=== PATIENT | male | born 1945 | race African-American/Black ===

== ENCOUNTER 2024-07-02 10:29 | Inpatient (IN) | payer OTHER, SELFPAY ==
[2024-07-02] VITALS (18 sets, daily range): BP systolic 86–130; BP diastolic 45–84; PULSE 78–98; RESP 12–21; TEMP 36.6–37.2; O2SAT 88–99; BMI 27.2
--- NOTE | ~2024-07-02 | XR_ITS ---
CLINICAL HISTORY: re-eval lung collapse 1 view chest x-ray Comparison: 07/02/2024 Findings: Stable position of left inferior hemithoracic chest tube. No significant change in complete left hemithoracic opacification (due to pleural effusion and lung collapse) with associated left-sided mediastinal shift. New small right lateral costophrenic pleural effusion can not be excluded. Old posttraumatic changes at level of right distal clavicle IMPRESSION: 1. Stable position of left inferior hemithoracic chest tube. No significant change in complete left hemithoracic opacification (due to pleural effusion and lung collapse) with associated left-sided mediastinal shift. 2. New small right lateral costophrenic pleural effusion can not be excluded. This document has been electronically signed by: Lashaun Rice MD on 07/04/2024 11:44:09
--- NOTE | ~2024-07-02 | US_ITS ---
EXAMINATION: US ABDOMEN LIMITED CLINICAL INFORMATION: Liver masses. COMPARISON: CT abdomen and pelvis 07/02/2024. TECHNIQUE: Real-time imaging of the liver. FINDINGS: Multiple images of the liver in transverse and long view and grayscale performed demonstrating lesions in concordance with previous cross-sectional imaging. The lesion of interest seen on CT scan at the inferior aspect of the right hepatic lobe and partially exophytic was not well-visualized and therefore it was deemed that the biopsy should be performed under CT to be performed at a later time. US/US abdomen limited IMPRESSION: Limited ultrasound of the liver demonstrating known lesions Electronically signed by: Raad Gonsalez MD 07/06/2024 04:38 PM EDT
--- NOTE | ~2024-07-02 | CT_ITS ---
CLINICAL HISTORY: abdominal pain, weight loss CT abdomen and pelvis with contrast Comparison: None Findings: There are multiple hypodense lesions of the liver, i.e., 1.6 x 2 cm in the right liver lobe series 8, image 16. No intrahepatic or extrahepatic ductal dilatation is seen. The hepatic and portal veins are patent. No calcified gallstones in the gallbladder. Pancreas, spleen are normal in appearance. 1.8 x 1.8 cm left adrenal nodule axial image 21. No suspicious focal lesion of the kidneys. There are bilateral renal cysts. No hydronephrosis or calculi. The abdominal aorta demonstrates no evidence of aneurysmal dilatation or dissection. Atherosclerosis calcification of the aorta. The colon is without wall thickening or inflammatory change. Colonic diverticulosis. No evidence of bowel obstruction. Appendix is not visualized. The pelvic organs are within normal limits. No intraperitoneal free air or fluid is visualized. Degenerative changes of the lumbar spine. IMPRESSION: Multiple hypodense lesions of the liver and a soft tissue nodule of the left adrenal gland are concerning for metastasis. Additional findings as above. This document has been electronically signed by: Laine Noe MD on 07/02/2024 14:02:57
--- NOTE | ~2024-07-02 | FL_ITS ---
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 79-year-old male. COMPARISON: None. Correlation made with CT chest 06/03/2024. TECHNIQUE: Fluoroscopic air contrast upper GI examination was performed utilizing standard techniques with thin and thick barium and effervescent granules. Numerous spot images were obtained. Several fluoroscopic image hold cine sequences were also obtained. FINDINGS: UPPER GI SERIES: Study is significantly limited due to patient unable to tolerate more than one swallow due to pain/dysphagia. Limited imaging demonstrates approximately 9 round filling defects retained within the mid esophagus, just below the level of the aortic arch, most likely retained food bolus. Just inferior to the food bolus, there is a filling defect of the more distal esophagus, possibly representing an intrinsic or extrinsic stricture. Further characterization was not possible due to limitations of the exam. A small amount of barium did pass beyond the retained food bolus and probable extrinsic stricture into the stomach. Due to the risk of aspiration, examination was terminated at this time. Complete whiteout of the left hemithorax is noted. A pigtail pleural catheter is in place in the medial left lower thorax. FLUOROSCOPY TIME: 44 seconds Number of Spot Images:2 Number of cines obtained: None. DOSE AREA PRODUCT: 710.6 uGy-m2 (microgray-meter squared) FL/FL barium swallow IMPRESSION: 1. Retained foreign body/food bolus in the midesophagus just below the level of the aortic arch. 2. Suspect either intrinsic or extrinsic stricture just below the retained food bolus. 3. A small amount of contrast did progress distally into the stomach. This critical result was relayed to Dr. Stauffer at 10:30 AM, 07/05/2024, via secure text. It was ascertained that the content and urgency of the report was understood at the time of direct communication. Electronically signed by: Vaughn Barth MD 07/05/2024 11:57 AM EDT
--- NOTE | ~2024-07-02 | XR_ITS ---
CLINICAL HISTORY: evaluate pigtail placement 1 view chest x-ray Comparison: CT/SR - CT CHEST W IV CON - 07/02/24 11:54 EDT Findings: Complete opacification of the left lung. A chest tube is overlying the left lung base. Normal size heart. No acute fracture. IMPRESSION: Left-sided chest tube placement. This document has been electronically signed by: Laine Noe MD on 07/02/2024 17:41:28
--- NOTE | ~2024-07-02 | CT_ITS ---
CLINICAL HISTORY: headache, weight loss CT head with contrast Comparison: None Findings: No intra-axial mass, midline shift, hydrocephalus, or acute hemorrhage. There is atrophy-like change and white matter disease. 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 The visualized paranasal sinuses and mastoid air cells are normal. The orbits are unremarkable. No skull fracture. IMPRESSION: 1. No acute intracranial findings. This document has been electronically signed by: Laine Noe MD on 07/02/2024 13:55:30
--- NOTE | ~2024-07-02 | CT_ITS ---
CLINICAL HISTORY: pain, weight loss CT chest with contrast Comparison: None Findings: The heart size is normal. No aortic dissection or pulmonary embolism. Possible large left central hilar mass measuring roughly 3.5 x 6.3 cm in size. There are enlarged supraclavicular and mediastinal lymph nodes, i.e., subcarinal lymph node 8 x 7 cm in size. There is complete collapse of the left lung. The right lung is clear. Large left pleural effusion. There are soft tissue mass within the left pleural cavity. Degenerative changes of the spine. IMPRESSION: A large left central hilar mass is concerning for neoplasm. Enlarged supraclavicular and mediastinal lymph nodes are concerning for angy metastases. Complete collapse of the left lung. 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 This document has been electronically signed by: Laine Noe MD on 07/02/2024 14:13:50
--- NOTE | 2024-07-02 11:02 | ED_ITS ---
HPI - General Adult General Chief complaint: General Medical Stated complaint: abd pain mass rectal bleeding Time Seen by Provider: 07/02/24 11:02 Source: patient and family Mode of arrival: ambulatory Limitations: language barrier History of Present Illness ED Provider: Quintin Sethi DO HPI narrative: 79-year-old male with past medical history of stroke 6 years ago on Brilinta and aspirin, hyperlipidemia and previous long history of tobacco use many years ago presents to the ED with family member due to concern for 50 lb weight loss over the past month. The patient was previously living in [place] and had a workup there showing concerning findings for lung mass, kidney mass and esophageal mass. The workup was completed a couple of weeks ago. The patient has had some difficulty swallowing and has not had solid foods in the last couple of weeks. He has been consuming chicken broth, ensure and water for nutrition. No recent vomiting or diarrhea. No recent bleeding. He reports constant pain over his left flank. He reports an occasional headache. Daughter denies any confusion. Patient has had no fevers or night sweats. Review of CT images performed in [place] show renal cysts, diverticulosis, evidence of diverticulitis, a nodular prostate, nodes in the paratracheal region, stranding posteriorly along the distal esophagus and mainstem bronchus encasing hilar structures, as well as punctate pulmonary nodules in the right upper lobe and mild emphysema. Patient was moved from [place] to the [facility] with his daughter and has not yet seen a doctor for follow up. He has been taking his prescribed medications. History obtained with the assistance of in-person housing coordinator, Olivia. Related Data Home Medications ?Medication ?Instructions ?Recorded ?Confirmed albuterol sulfate 90 mcg/actuation 2 puff inhalation Q4H PRN 07/02/24 07/02/24 aerosol inhaler Respiratory Distress ascorbic acid (vitamin C) 500 mg 500 mg PO BID 07/02/24 07/02/24 tablet (Vitamin C) aspirin 325 mg tablet 325 mg PO BID 07/02/24 07/02/24 atorvastatin 40 mg tablet 40 mg PO DAILY 07/02/24 07/02/24 calcium 600 mg (as carbonate)-vit 1 tab PO BID 07/02/24 07/02/24 D3 20 mcg (800 unit) chewable tablet (Caltrate plus D) cholecalciferol (vitamin D3) 125 125 mcg PO BID 07/02/24 07/02/24 mcg (5,000 unit) tablet (Vitamin D3) famotidine 20 mg tablet 20 mg PO BEDTIME PRN Dyspepsia 07/02/24 07/02/24 ferrous sulfate 325 mg (65 mg 325 mg PO DAILY 07/02/24 07/02/24 iron) tablet (Iron (ferrous sulfate)) isosorbide mononitrate 30 mg 30 mg PO DAILY 07/02/24 07/02/24 tablet,extended release 24 hr ticagrelor 90 mg tablet (Brilinta) 90 mg PO BID 07/02/24 07/02/24 tramadol 50 mg tablet 50 mg PO Q6H PRN Pain (Scale Score 07/02/24 07/02/24 4-6) Allergies Allergy/AdvReac Type Severity Reaction Status Date / Time No Known Allergies Allergy Verified 07/02/24 10:51 Review of Systems 2 Review of Systems: Yes all other systems are reviewed and are negative PMFSH Social History Social History Unable to assess alcohol history related to: Unknown Patient Tobacco Use Status: Former Tobacco user Smoked in Last 30 Days: No Use of substances other than those prescribed or required for medical reasons: No Advance Directives: No Advance Directives Information Provided: Yes Do you have a plan to hurt others: No Plan Nutrition Risks: Emaciation/Cachexia and Poor intake 0-25% >4 days Physical Exam ED Vital Signs: Vital Signs - 24 hr 07/02/24 10:39 07/02/24 12:00 07/02/24 12:40 Temperature 97.9 F 98.9 F 98.0 F Pulse Rate 84 82 86 Respiratory Rate 18 18 21 H Blood Pressure 100/57 L 96/51 L 96/45 L Pulse Oximetry 95 94 88 L Oxygen Delivery Method Room Air Room Air Room Air 07/02/24 12:57 07/02/24 13:15 07/02/24 13:46 Temperature 98.9 F 98.0 F Pulse Rate 82 83 Respiratory Rate 18 16 Blood Pressure 89/52 L 106/53 L 104/62 Pulse Oximetry 96 99 Oxygen Delivery Method Room Air Room Air 07/02/24 14:44 07/02/24 14:45 07/02/24 14:46 Temperature Pulse Rate 85 89 Respiratory Rate Blood Pressure 116/59 L 118/59 L Pulse Oximetry 88 L Oxygen Delivery Method Room Air 07/02/24 14:49 Temperature Pulse Rate 89 Respiratory Rate Blood Pressure 110/62 Pulse Oximetry Oxygen Delivery Method BMI result Body Mass Index 27.2 Constitutional: ?Alert, oriented, speaking in full sentences, appears weak and cachectic HEENT: ?Normocephalic, atraumatic. ?Dry mucous membranes Eyes: ?PERRL, EOMI Neck: ?Supple, nontender Chest: ?No chest wall tenderness Respiratory: ?Diminished lung sounds throughout the left side, no increased work of breathing Cardio: ?Regular rate and rhythm, no murmur, 2+ radial and DP pulses symmetrically GI: ?Soft, nondistended, pain limited to the left flank on palpation Back: ?Normal range of motion, nontender Skin: ?No rash, no lesions Neuro: ?Alert and oriented to person, place and time, moves all 4 extremities, no focal deficits Extremities: ?No swelling or tenderness, full range of motion Psych: ?Calm, alert and cooperative, appropriate behavior Medications Administered Discontinued Medications Generic Name Dose Route Start Last Admin Trade Name Freq PRN Reason Stop Dose Admin Sodium Chloride 1,000 mls @ 999 mls/hr 07/02/24 12:00 07/02/24 13:09 Ns IV 07/02/24 13:00 Infused .Q1H1M DIANA Infusion Sodium Chloride 1,000 mls @ 999 mls/hr 07/02/24 13:15 07/02/24 14:17 Ns IV 07/02/24 14:15 Infused .Q1H1M DIANA Infusion Iohexol 85 ml 07/02/24 12:15 07/02/24 12:16 Iohexol 350 Mg/Ml 100 Ml Infus..Btl IV 07/02/24 12:16 85 ml ONCE ONE Administration Lidocaine HCl 20 ml 07/02/24 15:31 07/02/24 16:15 Lidocaine Hcl 1 % Mpf 5 Ml Vial SUBCUT 07/02/24 15:32 20 ml ONCE ONE Administration Morphine Sulfate 4 mg 07/02/24 11:46 07/02/24 13:09 Morphine Sulfate 4 Mg/Ml Cartridge IVPUSH 07/02/24 11:47 4 mg ONCE ONE Administration Protocol Morphine Sulfate 4 mg 07/02/24 16:37 07/02/24 17:57 Morphine Sulfate 4 Mg/Ml Cartridge IVPUSH 07/02/24 16:38 Not Given ONCE ONE Protocol Ondansetron HCl 4 mg 07/02/24 11:46 07/02/24 12:20 Ondansetron Hcl 4 Mg/2 Ml Vial IVPUSH 07/02/24 11:47 4 mg ONCE ONE Administration Procedures Chest Tube Chest Tube 1: Chest Tube Location: left Size of Tube (cm): 14 Chest Tube Prep: Yes betadine prep (Chlorhexidine), sterile drapes applied and other Local Anesthetic: lidocaine 1% Amount of anesthesia used (mL): 20 Incision Made With: other (Seldinger technique using pigtail) Post Procedure: sutured to skin and sterile dressing applied Tube Drainage: fluid (Serosanguineous fluid, cloudy) Amount of initial drainage (mL): 1,000 Post Procedure CXR?: Yes Patient Tolerated Procedure: Yes Complications: other (Clamped drain) Progress: The chest tube was inserted using ultrasound images prior to prepping the skin and applying the drape as well as with sterile technique just prior to insertion of the pigtail catheter. A large area of Frank effusion was visualized along the left posterolateral chest wall and the tube was inserted via Seldinger technique over midthoracic rib without notable air and with fluid appreciated immediately. Medical Decision Making Medical Decision Making MDM Narrative: Ill-appearing patient presenting with significant weight loss and concerns for metastatic disease from workup performed in [place] within the last couple of weeks. Patient has transient hypotension which responded well to 2 L of IV fluids. His pain has been addressed with multiple rounds of morphine. He became hypoxic to 88% on room air prior to initial morphine administration and was placed on 2 L nasal cannula. He also became tachypneic from 20 breaths per minute to 35 breaths per minute upon standing and was unable to ambulate. His labs are grossly unremarkable. CT imaging shows concerning findings for metastatic disease involving the abdomen and chest. CT of the brain unremarkable. The patient has a large left-sided pleural effusion. In discussion with pulmonology and hospitalist team, it was decided to perform a diagnostic and therapeutic left-sided thoracentesis. The patient tolerated this well and consent was obtained with the assistance of in-person housing coordinator, Pauline. Plan is for interventional Radiology to place a PleurX drain and the patient will be followed with Oncology as well. Admission/Observation Consideration of admission/observation: Escalation of care including admission/observation considered Consult Healthcare Provider Management of the patient was discussed with: Hospitalist and Camp Program Director (Pulmonology) Lab Data MDM Lab Attestation statement: I reviewed the patient's lab results. 07/02/24 11:11 07/02/24 11:11 Labs: Lab Results 07/02/24 07/02/24 07/02/24 Range/Units 11:11 11:14 14:38 WBC 12.4 H (4.8-10.8) X10*3/uL RBC 3.34 L (4.60-5.80) X10*6/uL Hgb 10.9 L (14.0-18.0) g/dl Hct 31.1 L (42.0-52.0) % MCV 93.1 (80.0-98.0) fL MCH 32.6 (27.0-33.0) pg MCHC 35.0 (31.0-36.0) g/dl RDW 12.6 (11.0-16.0) % Plt Count 375 (160-400) X10*3/uL MPV 7.8 L (9.4-12.4) fL Immature Gran % (Auto) 0.9 H (0.0-0.4) % Neut % (Auto) 81.4 H (45-73) % Lymph % (Auto) 8.2 L (20-40) % [place] % (Auto) 8.6 (2-11) % Eos % (Auto) 0.7 (0-4) % Baso % (Auto) 0.2 (0-2) % Lymph # (Auto) 1.0 L (1.2-4.9) X10*3/uL [place] # (Auto) 1.1 (0.1-1.2) X10*3/uL Eos # (Auto) 0.1 (0.0-0.4) X10*3/uL Baso # (Auto) 0.0 (0.0-0.2) X10*3/uL Abs Immat Gran (auto) 0.11 H (0.00-0.03) X10*3/uL Absolute Neuts (auto) 10.1 H (2.0-8.3) x10*3/uL Absolute Nucleated RBC 0.000 (0.0-0.012) X10*3/uL Nucleated RBC % (auto) 0.0 (0.0-0.2) /100WBC PT 13.5 H (10.9-12.4) SEC INR 1.2 H (0.9-1.1) Sodium 131 L (135-145) mmol/L Potassium 4.6 (3.3-5.1) mmol/L Chloride 94 L (96-108) mmol/L Carbon Dioxide 27 (22-29) mmol/L Anion Gap 15 (12-20) BUN 13 (9-16) mg/dL Creatinine 0.76 (0.5-1.4) mg/dL Estim Creat Clear Calc 78.8 Estimated GFR > 60 Random Glucose 114 (60-115) mg/dL Uric Acid 6.0 (3.4-7.0) mg/dL Calcium 9.8 (8.4-10.2) mg/dL Phosphorus 4.1 (2.7-4.5) mg/dL Magnesium 2.0 (1.6-2.6) mg/dL Total Bilirubin 1.0 (0.0-1.0) mg/dL AST 45 H (5-37) U/L ALT 13 (0-40) U/L Alkaline Phosphatase 100 (39-117) U/L Troponin I High Sens 9.9 (<3.5-35.0) ng/L Total Protein 7.0 (6.5-8.0) g/dL Albumin 3.6 (3.5-5.0) g/dL Lipase 25 (8-78) U/L Urine Color Yellow Urine Appearance Clear Urine pH 6.0 (5.0-9.0) Ur Specific [place] >= 1.030 H (1.005-1.025) Urine Protein Negative (Neg-Trace) mg/dL Urine Glucose (UA) Negative (Negative) mg/dL Urine Ketones Negative (Negative) mg/dL Urine Blood Negative (Negative) Urine Nitrite Negative (Negative) Ur Leukocyte Esterase Negative (Negative) Influenza Type A (PCR) NEGATIVE (Negative) Influenza Type B (PCR) NEGATIVE (Negative) RSV RNA Qual (PCR) NEGATIVE (Negative) SARS-CoV-2 RNA (RT-PCR) NEGATIVE (Negative) Critical Care Time Critical Care Time Critical Care Time: Yes Total Critical Care Time: 35 Attestation: Due to cachectic state with hypoxia and hypotension, the patient required frequent bedside evaluations, hemodynamic management with crystalloid fluid, low-flow oxygen therapy and comprehensive workup. I interpreted a chest x-ray, EKG and consulted pulmonology. Quintin Sethi DO Discharge Plan Discharge Clinical Impression: History of metastatic neoplastic disease, Pleural effusion, left, Hypoxia, Physical deconditioning Dysphagia Qualifiers: Dysphagia type: unspecified Qualified Code(s): R13.10 - Dysphagia, unspecified Patient Disposition: Admitted As Inpatient Interventions: Admission Worksheet (ED) Last Done: 07/02/24 18:30
[2024-07-02 11:14] LABS: MANUAL DIFF FLAG NO
[2024-07-02 11:17] LABS: Basophils Percent Auto 0.2 % (0-2); Eosinophils Absolute Auto 0.1 X10*3/uL (0.0-0.4); Eosinophils Percent Auto 0.7 % (0-4); Hematocrit 31.1 % (42.0-52.0); Hemoglobin 10.9 g/dl (14.0-18.0); Imm Gran Abs Auto 0.11 X10*3/uL (0.00-0.03); Imm Gran Pct Auto 0.9 % (0.0-0.4); Lymphocytes Percent Auto 8.2 % (20-40); Mean Corpuscular Hemoglobin 32.6 pg (27.0-33.0); Mean Corpuscular Volume 93.1 fL (80.0-98.0); Mean Platelet Volume 7.8 fL (9.4-12.4); Monocytes Absolute Auto 1.1 X10*3/uL (0.1-1.2); Monocytes Percent Auto 8.6 % (2-11); Neutrophils Absolute Auto 10.1 x10*3/uL (2.0-8.3); Neutrophils Percent Auto 81.4 % (45-73); Platelet Count 375 X10*3/uL (160-400); Red Blood Count 3.34 X10*6/uL (4.60-5.80); Red Cell Distribution Width 12.6 % (11.0-16.0); White Blood Count 12.4 X10*3/uL (4.8-10.8)
[2024-07-02 11:21] LABS: INTERNATIONAL NORM RATIO 1.2 (0.9-1.1); Prothrombin Time 13.5 SEC (10.9-12.4)
[2024-07-02 11:31] LABS: Alanine Aminotransferase 13 U/L (0-40); Albumin Level 3.6 g/dL (3.5-5.0); Alkaline Phosphatase 100 U/L (39-117); Anion Gap 15 (12-20); Aspartate Amino Transferase 45 U/L (5-37); Blood Urea Nitrogen 13 mg/dL (9-16); Calcium 9.8 mg/dL (8.4-10.2); Carbon Dioxide 27 mmol/L (22-29); Chloride 94 mmol/L (96-108); Creatinine Clr Calc Pharmacy 78.8; Estimated Glomerular Filt Rate > 60; Glucose Random 114 mg/dL (60-115); Lipase 25 U/L (8-78); Potassium 4.6 mmol/L (3.3-5.1); Sodium 131 mmol/L (135-145)
[2024-07-02 11:38] LABS: Troponin-I High Sensitivity 9.9 ng/L (<3.5-35.0)
[2024-07-02 11:57] LABS: Influenza A PCR NEGATIVE (Negative); Influenza B PCR NEGATIVE (Negative); Resp Syncy Virus RNA Qual PCR NEGATIVE (Negative); SARS COV2 PCR INHOUSE NEGATIVE (Negative)
[2024-07-02] MEDS: iohexoL 350 MG/ML 100 ML INFUS..BTL 85 ML IV (12:16)
--- NOTE | 2024-07-02 12:18 | MHC.EDTECH ---
Blood Pressure low. RN aware.
[2024-07-02] MEDS: ondansetron HCL 4 MG/2 ML VIAL IVPUSH (12:20)
[2024-07-02] MEDS: 0.9 % Sodium Chloride 1,000 ML 999 ML IV ×2 (12:20→13:05)
--- NOTE | 2024-07-02 12:33 | PC.NURSE ---
Pt's BP 87/52; MD made aware; IVF's infusing at bolus rate and Morphine held at this time per MD
[2024-07-02 12:42] LABS: Phosphorus 4.1 mg/dL (2.7-4.5)
[2024-07-02] MEDS: Morphine Sulfate 4 MG/ML CARTRIDGE IVPUSH (13:09)
--- NOTE | 2024-07-02 13:54 | MHC.EDTECH ---
PATIENT UNABLE TO URINATE.
--- NOTE | 2024-07-02 14:29 | PC.NURSE ---
Late chart entry: noted at approx 1245, LS absent over Left side; SAO2 between 88-93 % RA; pt placed on 2 ltr NC; made aware
[2024-07-02 14:48] LABS: Appearance Urine Clear; Color Urine Yellow; Glucose Urine UA Negative (Negative); Leukocyte Esterase Urine Negative (Negative); Nitrite Urine Negative (Negative); Specific Gravity - Urine >= 1.030 (1.005-1.025); Urine Blood Negative (Negative); Urine Ketones Negative (Negative); Urine Protein Negative (Neg-Trace)
--- NOTE | 2024-07-02 15:40 | P.HPHOSP_ITS ---
History of Present Illness Date of Service: 07/02/24 Chief Complaint: weight loss 79-year-old male with past medical history of CAD, stroke 6 years ago on Brilinta and aspirin, hyperlipidemia and previous long history of tobacco use many years ago presents to the ED with his daughterdue to concern for 50 lb weight loss over the past month. His daughter went to get him in [place] as he has been feeling more ill. In [place] and had a workup showing concerning findings for lung mass, kidney mass and esophageal mass. The workup was completed a couple of weeks ago. The patient has had some difficulty swallowing and has not had solid foods in the last couple of weeks. He has been consuming chicken broth, ensure and water for nutrition. Patient denied chest pain, sob, fever chills, nausea, vomiting, diarrhea. He reports constant pain over his left flank. In the ED, Review of CT images performed in [place] show renal cysts, diverticulosis, evidence of diverticulitis, a nodular prostate, nodes in the paratracheal region, stranding posteriorly along the distal esophagus and mainstem bronchus encasing hilar structures, as well as punctate pulmonary nodules in the right upper lobe and mild emphysema. 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 Abdominal CT showing multiple hypodense lesions of the liver and a soft tissue nodule of the left adrenal gland concerning for metastasis. Review of Systems 2 Review of Systems: Denies any recent fever chills or decrease in appetite respiratory denies any shortness of breath coverage production cardiovascular is adjustment of any PND or edema gastrointestinal denies any dysphagia abdominal pain nausea vomiting or diarrhea genitourinary denies any dysuria frequency or hematuria musculoskeletal denies any joint pain or swelling neuropsych denies any weakness or seizures all other systems reviewed are negative PMFSH Social History Unable to assess alcohol history related to: Unknown Smoked in Last 30 Days: No Use of substances other than those prescribed or required for medical reasons: No Advance Directives: No Advance Directives Information Provided: Yes Do you have a plan to hurt others: No Plan Meds Allergies Allergy/AdvReac Type Severity Reaction Status Date / Time No Known Allergies Allergy Verified 07/02/24 10:51 Physical Exam 2 Vital Signs and Narrative: Vital Signs: Last Vital Signs Temp 98.0 F 07/02/24 13:46 Pulse 89 07/02/24 14:49 Resp 16 07/02/24 13:46 BP 110/62 07/02/24 14:49 Pulse Ox 99 07/02/24 13:46 O2 Del Method Room Air 07/02/24 13:46 BMI result Body Mass Index 27.2 Appearing in no acute distress head is normocephalic atraumatic eyes pupils are PERRLA sclera is anicteric mouth throat mucous membranes are intact and moist neck is supple no lymphadenopathy, no JVD noted lung sounds are clear to auscultation heart regular rate rhythm, clear S1, S2 positive bowel sounds, abdomen is soft, nontender neuro patient is alert x3, no focal deficits Results Labs 07/02/24 11:11 07/02/24 11:11 Labs: Laboratory Results - last 24 hr 07/02/24 07/02/24 07/02/24 11:11 11:14 14:38 MCV 93.1 MCH 32.6 MCHC 35.0 RDW 12.6 Plt Count 375 MPV 7.8 L Immature Gran % (Auto) 0.9 H Neut % (Auto) 81.4 H Lymph % (Auto) 8.2 L [place] % (Auto) 8.6 Eos % (Auto) 0.7 Baso % (Auto) 0.2 Lymph # (Auto) 1.0 L [place] # (Auto) 1.1 Eos # (Auto) 0.1 Baso # (Auto) 0.0 Abs Immat Gran (auto) 0.11 H Absolute Neuts (auto) 10.1 H Absolute Nucleated RBC 0.000 Nucleated RBC % (auto) 0.0 PT 13.5 H INR 1.2 H Anion Gap 15 Estim Creat Clear Calc 78.8 Estimated GFR > 60 Random Glucose 114 Uric Acid 6.0 Calcium 9.8 Phosphorus 4.1 Magnesium 2.0 Total Bilirubin 1.0 AST 45 H ALT 13 Alkaline Phosphatase 100 Total Protein 7.0 Albumin 3.6 Lipase 25 Urine Color Yellow Urine Appearance Clear Urine pH 6.0 Ur Specific [place] >= 1.030 H Urine Protein Negative Urine Glucose (UA) Negative Urine Ketones Negative Urine Blood Negative Urine Nitrite Negative Ur Leukocyte Esterase Negative Influenza Type A (PCR) NEGATIVE Influenza Type B (PCR) NEGATIVE RSV RNA Qual (PCR) NEGATIVE SARS-CoV-2 RNA (RT-PCR) NEGATIVE Assessment and Plan (1) Pleural effusion, left: Status: Acute Plan 79 year old man admitted with significant weight loss over the last month in [place] with recent diagnosis of lung, liver mass, but no complete work up as of yet Pleural effusion likely malignant Chest CT showing large left central hilar mass, enlarged supra clavicular and mediastinal lymph nodes, complete collapse of the left lung, 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 Abdominal CT showing multiple hypodense lesions of the liver and a soft tissue nodule of the left adrenal gland concerning for metastasis Pleurx placed in ED Pulm consult placed oncology consult placed oxygen to keep o2 sats>90% telemetry Hypertension stable BP Normocytic anemia no acute blood loss follow CBC GERD PPI CAD hx of stent on brilinta and asa, hold both for now DVT prophylaxis with SCD boots Full code Med rec is pending Quality Stroke Does the patient have a stroke diagnosis?: No VTE Prior VTE?: No VTE Risk Level:: Medical - moderate - high VTE Device Contraindication: N/A - Device Ordered VTE Drug Contraindication: Treatment Not Indicated
[2024-07-02] MEDS: Lidocaine HCl 1 % MPF 5 ML VIAL 20 ML SUBCUT (16:15)
--- NOTE | 2024-07-02 17:22 | PC.NURSE ---
Procedure consent obtained/signed/in chart; pt moved into room 5 for L sided thoracentesis (diagnostic, therapeutic); safety time out done by this RN at 1609; 14Fr pigtail pleurex drain placed by Dr Sethi; 1 litre sanguinous fluid drained; samples sent to lab per orders; pt tolerated very well; vs remained stable throughout; post-procedure CXR confirmed tube placement; tube sutured in place and dressed; tube not attached to drainage at this time per MD; family now at bedside; will cont to monitor/tx per orders
--- NOTE | 2024-07-02 17:28 | PC.NURSE ---
amendment: Pt reports easier work of breathing; SAO2 91% RA, 97% 2 ltr NC
--- NOTE | 2024-07-02 17:49 | PHA.MEDREC ---
Pharmacy Consult ? Medication Reconciliation Pharmacy has completed the medication reconciliation.Med rec complete, spoke with patient and family members who are able to speak in [place]. Patient comes from [place] but had all medications with him. I was able to get all information from the current medications bottle he brought from [place]
[2024-07-02 17:50] LABS: MN% 94.6 %; PMN% 5.4 %; RBC Pleural Fluid 0.113 X10*6/uL; WBC Pleural Fluid 2.142 X10*3/uL
--- NOTE | 2024-07-02 17:58 | PC.NURSE ---
Pt tolerating PO fluids; pt was reporting 6/10 L sided rib pain at approx 1715; pt now reports 2/10 L sided rib pain and declines pain meds at this time; LS remain absent L side, but pt reports + decrease in work of breathing; bp's 93/54; MD made aware; pt mentating WNL; pt positioned on R side for comfort; family at bedside; awaiting bed for admission
[2024-07-02 18:39] LABS: BF Shift QC OK YES; Lymphocytes Pleural Fluid 56 %; Monocytes Pleural Fluid 17 %; Neutrophils Pleural Fluid 5 %; Other Cells Plerual Fl 22 %
--- NOTE | 2024-07-02 19:30 | PC.NURSE ---
assumed patient care, received report from TC Bell. patient appears to be resting comfortably at this time, remains on 2L of O2, VS WNL including O2 sat, daughter at bedside, NAD, remains on full pvc monitor for continuous observation, wctm
[2024-07-02] MEDS: Morphine Sulfate 2 MG/ML CARTRIDGE IVPUSH (21:19)
[2024-07-02] MEDS: Melatonin 3 MG TABLET 6 MG PO (21:22)
[2024-07-03] VITALS (13 sets, daily range): BP systolic 96–134; BP diastolic 56–81; PULSE 81–105; RESP 16–20; TEMP 36.5–38.3; O2SAT 94–99
[2024-07-03] MEDS: Morphine Sulfate 2 MG/ML CARTRIDGE IVPUSH (03:40)
[2024-07-03] MEDS: HYDROmorphone HCl 1 MG/ML SYRINGE IVPUSH (05:57)
[2024-07-03 06:33] LABS: Hematocrit 28.6 % (42.0-52.0); Hemoglobin 9.6 g/dl (14.0-18.0); Mean Corpuscular HGB Conc 33.6 g/dl (31.0-36.0); Mean Corpuscular Hemoglobin 32.1 pg (27.0-33.0); Mean Corpuscular Volume 95.7 fL (80.0-98.0); Mean Platelet Volume 8.1 fL (9.4-12.4); Platelet Count 349 X10*3/uL (160-400); Red Blood Count 2.99 X10*6/uL (4.60-5.80); Red Cell Distribution Width 12.7 % (11.0-16.0); White Blood Count 9.9 X10*3/uL (4.8-10.8)
[2024-07-03 06:51] LABS: Anion Gap 14 (12-20); Blood Urea Nitrogen 7 mg/dL (9-16); Calcium 8.9 mg/dL (8.4-10.2); Carbon Dioxide 23 mmol/L (22-29); Chloride 99 mmol/L (96-108); Creatinine Clr Calc Pharmacy 86.8; Estimated Glomerular Filt Rate > 60; Glucose Random 88 mg/dL (60-115); Potassium 4.5 mmol/L (3.3-5.1); Sodium 131 mmol/L (135-145)
[2024-07-03] MEDS: 0.9 % Sodium Chloride Flush 3 ML SYRINGE IVFLUSH ×3 (07:46→21:34)
--- NOTE | 2024-07-03 08:02 | PC.RT ---
Pt SATs 98% on 1L. Pt taken off O2, SATs >94% on RA.
[2024-07-03] MEDS: Ascorbic Acid 500 MG TABLET PO ×2 (08:47→19:56)
[2024-07-03] MEDS: Cholecalciferol (Vitamin D3) 25 MCG TABLET 125 MCG PO ×2 (08:47→19:56)
[2024-07-03] MEDS: Ferrous Sulfate 324 MG TABLET.DR PO (08:47)
[2024-07-03] MEDS: Atorvastatin Calcium 40 MG TABLET PO (08:47)
[2024-07-03] MEDS: Calcium + Vitamin D 250 MG TABLET 500 MG PO ×2 (08:48→19:56)
[2024-07-03] MEDS: Isosorbide Mononitrate 30 MG TAB.ER.24H PO (08:48)
--- NOTE | 2024-07-03 11:26 | P.PNIM_ITS ---
Subjective Subjective Date of Service: 07/03/24 Review of Systems Follow up Pleural effusion, likely malignant pain to pleurx cath site Physical Exam 2 Vital Signs: Vital Signs: Last Vital Signs Temp 98.8 F 07/03/24 09:29 Pulse 85 07/03/24 09:29 Resp 20 07/03/24 09:29 BP 130/81 07/03/24 09:29 Pulse Ox 97 07/03/24 09:29 O2 Del Method Nasal Cannula 07/03/24 09:29 O2 Flow Rate 2 07/03/24 09:29 BMI result Body Mass Index 27.2 Appearing in no acute distress lung sounds are clear to auscultation heart regular rate rhythm, clear S1, S2 positive bowel sounds, abdomen is soft, nontender neuro patient is alert x3, no focal deficits Objective Data Active Medications Acetaminophen (Acetaminophen 325 Mg Tablet) 650 mg PO Q6H PRN PRN Reason: Pain, Mild 1-3,fever,headache Albuterol Sulfate (Albuterol Sulfate 90 Mcg 8 Gm Inhaler) 2 puff INHALE RQ4H PRN PRN Reason: Respiratory Distress Ascorbic Acid (Ascorbic Acid 500 Mg Tablet) 500 mg PO BID [facility] Last Admin: 07/03/24 08:47 Dose: 500 mg Documented By: AD Atorvastatin Calcium (Atorvastatin Calcium 40 Mg Tablet) 40 mg PO DAILY [facility] Last Admin: 07/03/24 08:47 Dose: 40 mg Documented By: AD Calcium Carbonate (Calcium Carbonate 750 Mg Tab.Chew) 750 mg PO Q4H PRN PRN Reason: Heartburn Calcium Carbonate/Cholecalciferol (Calcium + Vitamin D 250 Mg Tablet) 500 mg PO BID [facility] Last Admin: 07/03/24 08:48 Dose: 500 mg Documented By: AD Famotidine (Famotidine 20 Mg Tablet) 20 mg PO BEDTIME PRN PRN Reason: Dyspepsia Ferrous Sulfate (Ferrous Sulfate 324 Mg Tablet.Dr) 324 mg PO DAILY [facility] Last Admin: 07/03/24 08:47 Dose: 324 mg Documented By: AD Isosorbide Mononitrate (Isosorbide Mononitrate 30 Mg Tab.Er.24h) 30 mg PO DAILY [facility]; Protocol Last Admin: 07/03/24 08:48 Dose: 30 mg Documented By: AD Magnesium Hydroxide (Milk Of Magnesia 30 Ml Oral.Susp) 30 ml PO DAILY PRN PRN Reason: Constipation Melatonin (Melatonin 3 Mg Tablet) 6 mg PO BEDTIME PRN PRN Reason: Insomnia Last Admin: 07/02/24 21:22 Dose: 6 mg Documented By: MATTY Morphine Sulfate (Morphine Sulfate 2 Mg/Ml Cartridge) 2 mg IVPUSH Q4H PRN; Protocol PRN Reason: Pain, Severe (Pain Scale 7-10) Last Admin: 07/03/24 03:40 Dose: 2 mg Documented By: MATTY Sodium Chloride (0.9 % Sodium Chloride Flush 3 Ml Syringe) [facility] Last Admin: 07/03/24 07:46 Dose: 3 ml Documented By: AD Tramadol HCl (Tramadol Hcl 50 Mg Tablet) 50 mg PO Q6H PRN PRN Reason: Pain (Scale Score 4-6) Vitamin D (Cholecalciferol (Vitamin D3) 25 Mcg Tablet) 125 mcg PO BID [facility] Last Admin: 07/03/24 08:47 Dose: 125 mcg Documented By: AD Labs 07/03/24 06:14 07/03/24 06:14 Labs: Laboratory Results - last 24 hr 07/02/24 07/02/24 07/02/24 11:11 11:14 14:38 MCV MCH MCHC RDW Plt Count MPV Absolute Nucleated RBC Nucleated RBC % (auto) Anion Gap 15 Estim Creat Clear Calc 78.8 Estimated GFR > 60 Random Glucose 114 Uric Acid 6.0 Calcium 9.8 Phosphorus 4.1 Magnesium 2.0 Total Bilirubin 1.0 AST 45 H ALT 13 Alkaline Phosphatase 100 Total Protein 7.0 Albumin 3.6 Lipase 25 Urine Color Yellow Urine Appearance Clear Urine pH 6.0 Ur Specific [place] >= 1.030 H Urine Protein Negative Urine Glucose (UA) Negative Urine Ketones Negative Urine Blood Negative Urine Nitrite Negative Ur Leukocyte Esterase Negative Pleural WBC Pleural RBC Pleural Neutrophils Pleural Lymphocytes Pleural Monocytes Pleural Other Cells Influenza Type A (PCR) NEGATIVE Influenza Type B (PCR) NEGATIVE RSV RNA Qual (PCR) NEGATIVE SARS-CoV-2 RNA (RT-PCR) NEGATIVE 07/02/24 07/03/24 16:30 06:14 MCV 95.7 MCH 32.1 MCHC 33.6 RDW 12.7 Plt Count 349 MPV 8.1 L Absolute Nucleated RBC 0.000 Nucleated RBC % (auto) 0.0 Anion Gap 14 Estim Creat Clear Calc 86.8 Estimated GFR > 60 Random Glucose 88 Uric Acid Calcium 8.9 D Phosphorus Magnesium Total Bilirubin AST ALT Alkaline Phosphatase Total Protein Albumin Lipase Urine Color Urine Appearance Urine pH Ur Specific [place] Urine Protein Urine Glucose (UA) Urine Ketones Urine Blood Urine Nitrite Ur Leukocyte Esterase Pleural WBC 2.142 Pleural RBC 0.113 Pleural Neutrophils 5 Pleural Lymphocytes 56 Pleural Monocytes 17 Pleural Other Cells 22 Influenza Type A (PCR) Influenza Type B (PCR) RSV RNA Qual (PCR) SARS-CoV-2 RNA (RT-PCR) Microbiology Microbiology Results: Microbiology 07/02/24 16:30 Gram Stain - Final Thoracentesis Fluid Assessment and Plan (1) History of metastatic neoplastic disease: Status: Acute Plan 79 year old man admitted with significant weight loss over the last month in [place] with recent diagnosis of lung, liver mass, but no complete work up as of yet Pleural effusion likely malignant Chest CT showing large left central hilar mass, enlarged supra clavicular and mediastinal lymph nodes, complete collapse of the left lung, 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 Abdominal CT showing multiple hypodense lesions of the liver and a soft tissue nodule of the left adrenal gland concerning for metastasis Pleurx placed in ED Pulm consult placed oncology consult placed oxygen to keep o2 sats>90% telemetry Hypertension stable BP Normocytic anemia no acute blood loss follow CBC GERD PPI CAD hx of stent on brilinta and asa, hold both for now DVT prophylaxis with SCD boots Full code Quality Stroke Does the patient have a stroke diagnosis?: No VTE Prior VTE?: No VTE Risk Level:: Medical - moderate - high VTE Device Contraindication: N/A - Device Ordered VTE Drug Contraindication: Treatment Not Indicated
[2024-07-03] MEDS: traMADoL HCL 50 MG TABLET PO (12:09)
--- NOTE | 2024-07-03 12:41 | P.CONPL_ITS ---
History of Present Illness History of Present Illness Consult date: 07/03/24 Chief complaint: Malignant ieffusion Narrative: 79-year-old gentleman, former greater than 50 pack-year smoker, quit 7 years, with recent greater than 50 lb weight loss over several months, started to be worked up in [place] what appears to be metastatic cancer with large burden chest disease, admitted on 07/02/2024 with dyspnea and loud left-sided pleural effusion, now status post placement of left side 14 [place] chest tube with initial drainage of approximately 1 L, and additional drainage of V 100 cc today, with improvement his respiratory status. Review of Systems 2 Constitutional: Constitutional: Denies daytime sleepiness, Denies excessive sweating, Denies fatigue, Denies fever(s), Denies lethargy, Denies malaise, Denies night sweats, Denies snoring and Reports weight loss Eyes: Eyes: Denies blurry vision and Denies itchy eyes ENT: Denies nasal congestion, Denies post nasal drip, Denies sinus pain, Denies sinus pressure and Denies other ( Thrush) Cardiovascular: Cardiovascular: Denies chest pain, Denies pedal edema, Denies dyspnea, Reports dyspnea on exertion, Denies orthopnea and Denies paroxysmal nocturnal dyspnea Respiratory: Respiratory: Denies cough, Denies hemoptysis, Denies excessive phlegm production, Denies dyspnea, Reports dyspnea on exertion, Denies snoring and Denies wheezing Gastrointestinal: Gastrointestinal: Denies abdominal pain and Denies heartburn Musculoskeletal: Musculoskeletal: Denies myalgias, Denies arthralgias and Denies joint swelling Integumentary/Breasts: Skin/Breast: Denies rash Neurologic: Denies memory loss and Denies seizure-like activity Psychiatric: Psychiatric: Denies abnormal sleep pattern, Denies anxiety and Denies memory loss Endocrine: Endocrine: Denies excessive sweating, Denies fatigue and Denies heat intolerance Hematologic/Lymphatic: Hematologic/Lymphatic: Denies easy bruising Allergic/Immunologic: Allergic/Immunologic: Denies itchy eyes, Denies seasonal rhinorrhea and Denies wheezing PMFSH Social History Social History Household Members: Children Housing: Apartment Do you presently have visiting nurse or other home services: No Unable to assess alcohol history related to: Unknown Patient Tobacco Use Status: Former Tobacco user Meds Allergies Allergy/AdvReac Type Severity Reaction Status Date / Time No Known Allergies Allergy Verified 07/02/24 10:51 Active Medications: Current Medications Acetaminophen (Acetaminophen 325 Mg Tablet) 650 mg PO Q6H PRN PRN Reason: Pain, Mild 1-3,fever,headache Albuterol Sulfate (Albuterol Sulfate 90 Mcg 8 Gm Inhaler) 2 puff INHALE RQ4H PRN PRN Reason: Respiratory Distress Ascorbic Acid (Ascorbic Acid 500 Mg Tablet) 500 mg PO BID REPLACED BY [facility] Last Admin: 07/03/24 08:47 Dose: 500 mg Atorvastatin Calcium (Atorvastatin Calcium 40 Mg Tablet) 40 mg PO DAILY [facility]PLAC[facility] Last Admin: 07/03/24 08:47 Dose: 40 mg Calcium Carbonate (Calcium Carbonate 750 Mg Tab.Chew) 750 mg PO Q4H PRN PRN Reason: Heartburn Calcium Carbonate/Cholecalciferol (Calcium + Vitamin D 250 Mg Tablet) 500 mg PO BID [facility]PL[facility] Last Admin: 07/03/24 08:48 Dose: 500 mg Famotidine (Famotidine 20 Mg Tablet) 20 mg PO BEDTIME PRN PRN Reason: Dyspepsia Ferrous Sulfate (Ferrous Sulfate 324 Mg Tablet.Dr) 324 mg PO DAILY [facility]PL[facility] Last Admin: 07/03/24 08:47 Dose: 324 mg Hydromorphone HCl (Hydromorphone Hcl 0.5 Mg/0.5 Ml Syringe) 0.5 mg IVPUSH Q3H PRN; Protocol PRN Reason: Pain, Severe (Pain Scale 7-10) Isosorbide Mononitrate (Isosorbide Mononitrate 30 Mg Tab.Er.24h) 30 mg PO DAILY [facility]; Protocol Last Admin: 07/03/24 08:48 Dose: 30 mg Magnesium Hydroxide (Milk Of Magnesia 30 Ml Oral.Susp) 30 ml PO DAILY PRN PRN Reason: Constipation Melatonin (Melatonin 3 Mg Tablet) 6 mg PO BEDTIME PRN PRN Reason: Insomnia Last Admin: 07/02/24 21:22 Dose: 6 mg Oxycodone HCl (Oxycodone Hcl Immed Release 5 Mg Tablet) 5 mg PO Q4H PRN PRN Reason: Pain, Moderate(Pain Scale 4-6) Sodium Chloride (0.9 % Sodium Chloride Flush 3 Ml Syringe) 3 ml IVFLUSH QSHIFT REPLACED BY [facility] Last Admin: 07/03/24 07:46 Dose: 3 ml Tramadol HCl (Tramadol Hcl 50 Mg Tablet) 50 mg PO Q6H PRN PRN Reason: Pain (Scale Score 4-6) Last Admin: 07/03/24 12:09 Dose: 50 mg Vitamin D (Cholecalciferol (Vitamin D3) 25 Mcg Tablet) 125 mcg PO BID [facility] Last Admin: 07/03/24 08:47 Dose: 125 mcg Home Medications ?Medication ?Instructions ?Recorded ?Confirmed ?Last Taken ?Type albuterol sulfate 90 mcg/actuation 2 puff inhalation Q4H PRN 07/02/24 07/02/24 Unknown History aerosol inhaler Respiratory Distress ascorbic acid (vitamin C) 500 mg 500 mg PO BID 07/02/24 07/02/24 07/02/24 History tablet (Vitamin C) aspirin 325 mg tablet 325 mg PO BID 07/02/24 07/02/24 07/02/24 History atorvastatin 40 mg tablet 40 mg PO DAILY 07/02/24 07/02/24 07/02/24 History calcium 600 mg (as carbonate)-vit 1 tab PO BID 07/02/24 07/02/24 07/02/24 History D3 20 mcg (800 unit) chewable tablet (Caltrate plus D) cholecalciferol (vitamin D3) 125 125 mcg PO BID 07/02/24 07/02/24 07/02/24 History mcg (5,000 unit) tablet (Vitamin D3) famotidine 20 mg tablet 20 mg PO BEDTIME PRN Dyspepsia 07/02/24 07/02/24 Unknown History ferrous sulfate 325 mg (65 mg 325 mg PO DAILY 07/02/24 07/02/24 07/02/24 History iron) tablet (Iron (ferrous sulfate)) isosorbide mononitrate 30 mg 30 mg PO DAILY 07/02/24 07/02/24 07/02/24 History tablet,extended release 24 hr ticagrelor 90 mg tablet (Brilinta) 90 mg PO BID 07/02/24 07/02/24 07/02/24 History tramadol 50 mg tablet 50 mg PO Q6H PRN Pain (Scale Score 07/02/24 07/02/24 Unknown History 4-6) Physical Exam 2 Vital Signs: Vital Signs: Last Vital Signs Temp 99.1 F 07/03/24 11:46 Pulse 99 07/03/24 11:46 Resp 20 07/03/24 11:46 BP 116/58 L 07/03/24 11:46 Pulse Ox 98 07/03/24 11:46 O2 Del Method Nasal Cannula 07/03/24 11:46 O2 Flow Rate 2 07/03/24 11:46 BMI result Body Mass Index 27.2 Const: General: no acute distress and alert Nutritional Appearance: thin Orientation/consciousness: Other orientation findings ( oriented) HEENT: Head: Yes atraumatic Eyes: General: appearance normal, both eyes and all related structures S clerae: sclerae normal EOM: EOMs intact bilaterally Neck: Neck: Yes supple Lymphatic: no lymphadenopathy noted Resp: Effort & Inspection: normal respiratory effort and no use of accessory muscles Auscultation: crackles (Left-sided) Cardio: Rate: regular rate Rhythm: regular rhythm Heart sounds: no gallops, no murmurs and no rubs Skin: General skin exam: other ( warm) Extrem: General: No clubbing, No cyanosis and No edema Results Laboratory Findings 07/03/24 06:14 07/03/24 06:14 ABG, PT/INR, D-dimer: PT/INR, D-dimer PT 13.5 SEC (10.9-12.4) H 07/02/24 11:11 INR 1.2 (0.9-1.1) H 07/02/24 11:11 Abnormal lab findings: Abnormal Labs 07/02/24 07/02/24 07/03/24 11:11 14:38 06:14 WBC 12.4 H RBC 3.34 L 2.99 L Hgb 10.9 L 9.6 L Hct 31.1 L 28.6 L MPV 7.8 L 8.1 L Immature Gran % (Auto) 0.9 H Neut % (Auto) 81.4 H Lymph % (Auto) 8.2 L Lymph # (Auto) 1.0 L Abs Immat Gran (auto) 0.11 H Absolute Neuts (auto) 10.1 H PT 13.5 H INR 1.2 H Sodium 131 L 131 L Chloride 94 L BUN 7 L AST 45 H Ur Specific [place] >= 1.030 H Microbiology: Microbiology 07/02/24 16:30 Thoracentesis Fluid Gram Stain - Final Assessment and Plan (1) Pleural effusion, left: Status: Acute Plan Impression: 79-year-old gentleman with what appears to be metastatic lung cancer and large left-sided pleural effusion admitted with dyspnea, now improved after placement of left-sided chest tube and sequential partial drainage of the left-sided effusion, so far approximately 1.5 L. Recommendation: Continue sequential drainage of left-sided pleural effusion of approximately 0.5 L per day. Suggests placement of PleurX catheter when IR is available. Procedures Date of Service Date of Service: 07/03/24
[2024-07-03] MEDS: HYDROmorphone HCl 0.5 MG/0.5 ML SYRINGE IVPUSH ×3 (13:07→22:53)
--- NOTE | 2024-07-03 14:00 | PM.HEMONCCN ---
Subjective - Subjective Chief complaint: Consult for: Left pleural effusion. Lung mass. Liver and adrenal mets. Patient: new to practice Consult date: 07/03/24 Requesting Physician: Salena Stauffer. Primary Care Provider: None Physician Medical Summary: DIAGNOSIS: Left pleural effusion. Lung mass. Liver and adrenal lesions. Riprap Worker Utilized?: Yes - Language Price Accuracy Supervisor HPI - Consult Narrative Reason for consult: Consult for: Likely lung cancer. Pleural effusion.Liver & adrenal lesion Narrative: Brock Nazario is a 79 year old gentleman, with previous long history of tobacco use many years ago presents to the ED with his daughter due to concern for 50 lb weight loss over the past month. His daughter went to get him in [place] as he has been feeling ill. In [place], he had an evaluation showing findings concerning for lung mass, Adrenal mass and liver mass. The workup was completed a couple of weeks ago. The patient has had some difficulty swallowing and has not had solid foods in the last couple of weeks. He has been able to swallow chicken broth, ensure and water for nutrition. Patient denied chest pain, sob, fever chills, nausea, vomiting, diarrhea. He reports pain over his left flank. In the ED, review of CT images performed in [place] showed: Renal cysts, diverticulosis, evidence of diverticulitis, a nodular prostate, nodes in the paratracheal region, stranding posteriorly along the distal esophagus and mainstem bronchus encasing hilar structures, as well as punctate pulmonary nodules in the right upper lobe and mild emphysema. Here, Chest CT showed: Multiple hypodense lesions of the liver and a soft tissue nodule of the left adrenal gland are concerning for metastasis. A large left central hilar mass concerning for neoplasm with enlarged supraclavicular and mediastinal lymph nodes concerning for angy metastasis, complete collapse of the left lung with 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. Abdominal CT showing multiple hypodense lesions of the liver and a soft tissue nodule of the left adrenal gland concerning for metastasis. Review of Systems Review of Systems: He does feel rather fatigued. Denies any recent fever chills or decrease in appetite. No headache no dizziness. Denies chest pain. Respiratory: C/o shortness of breath, Cardiovascular: No PND or edema Gastrointestinal: denies any dysphagia abdominal pain nausea vomiting or diarrhea Genitourinary: denies any dysuria frequency or hematuria Musculoskeletal denies any joint pain or swelling Neuropsych denies any weakness or seizures All other systems reviewed are negative PMFSH: Past medical history of CAD, stroke 6 years ago on Brilinta and aspirin, hyperlipidemia. Family history: Noncontributory. 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 Has 5 children. Unable to assess alcohol history related to: Unknown Smoked in Last 30 Days: No Use of substances other than those prescribed or required for medical reasons: No Denies smoking nor alcohol use. Advance Directives: No Review of Systems - Constitutional Reports system reviewed and no additional complaints, except as documented - Eyes Reports system reviewed and no additional complaints, except as documented - ENT Reports system reviewed and no additional complaints, except as documented - Cardiovascular Reports system reviewed and no additional complaints, except as documented - Respiratory Reports no additional respiratory complaints - Gastrointestinal Reports system reviewed and no additional complaints, except as documented - Genitourinary Genitourinary: Reports no additional male genitourinary complaints - Musculoskeletal Reports system reviewed and no additional complaints, except as documented - Integumentary/Breasts Skin/Breast: Reports no additional skin complaints - Neurologic Denies memory loss, Denies seizure-like activity - Psychiatric Reports system reviewed and no additional complaints, except as documented - Endocrine Reports no additional endocrine complaints - Hematologic/Lymphatic Reports system reviewed and no additional complaints, except as documented - Allergic/Immunologic Reports system reviewed and no additional complaints, except as documented Oncology Screenings - ECOG Performance Status ECOG Performance Status: 1 [facility] Social History: Social History Living Situation History: Household Members: Children Housing: Apartment Do you presently have visiting nurse or other home services: No Alcohol History: Unable to assess alcohol history related to: Unknown Tobacco History: Patient Tobacco Use Status: Former Tobacco user Second Hand Smoke Exposure: No Occupation Assessmet: service: No Second hand tobacco smoke exposure: No Home Medications and Allergies Current Medications: Current Medications Acetaminophen (Acetaminophen 325 Mg Tablet) 650 mg PO Q6H PRN PRN Reason: Pain, Mild 1-3,fever,headache Albuterol Sulfate (Albuterol Sulfate 90 Mcg 8 Gm Inhaler) 2 puff INHALE RQ4H PRN PRN Reason: Respiratory Distress Ascorbic Acid (Ascorbic Acid 500 Mg Tablet) 500 mg PO BID [facility] Last Admin: 07/03/24 08:47 Dose: 500 mg Atorvastatin Calcium (Atorvastatin Calcium 40 Mg Tablet) 40 mg PO DAILY [facility] Last Admin: 07/03/24 08:47 Dose: 40 mg Calcium Carbonate (Calcium Carbonate 750 Mg Tab.Chew) 750 mg PO Q4H PRN PRN Reason: Heartburn Calcium Carbonate/Cholecalciferol (Calcium + Vitamin D 250 Mg Tablet) 500 mg PO BID [facility] Last Admin: 07/03/24 08:48 Dose: 500 mg Famotidine (Famotidine 20 Mg Tablet) 20 mg PO BEDTIME PRN PRN Reason: Dyspepsia Ferrous Sulfate (Ferrous Sulfate 324 Mg Tablet.Dr) 324 mg PO DAILY [facility] Last Admin: 07/03/24 08:47 Dose: 324 mg Hydromorphone HCl (Hydromorphone Hcl 0.5 Mg/0.5 Ml Syringe) 0.5 mg IVPUSH Q3H PRN; Protocol PRN Reason: Pain, Severe (Pain Scale 7-10) Last Admin: 07/03/24 13:07 Dose: 0.5 mg Isosorbide Mononitrate (Isosorbide Mononitrate 30 Mg Tab.Er.24h) 30 mg PO DAILY [facility]; Protocol Last Admin: 07/03/24 08:48 Dose: 30 mg Magnesium Hydroxide (Milk Of Magnesia 30 Ml Oral.Susp) 30 ml PO DAILY PRN PRN Reason: Constipation Melatonin (Melatonin 3 Mg Tablet) 6 mg PO BEDTIME PRN PRN Reason: Insomnia Last Admin: 07/02/24 21:22 Dose: 6 mg Oxycodone HCl (Oxycodone Hcl Immed Release 5 Mg Tablet) 5 mg PO Q4H PRN PRN Reason: Pain, Moderate(Pain Scale 4-6) Sodium Chloride (0.9 % Sodium Chloride Flush 3 Ml Syringe) 3 ml IVFLUSH QSHIFT [facility] Last Admin: 07/03/24 07:46 Dose: 3 ml Tramadol HCl (Tramadol Hcl 50 Mg Tablet) 50 mg PO Q6H PRN PRN Reason: Pain (Scale Score 4-6) Last Admin: 07/03/24 12:09 Dose: 50 mg Vitamin D (Cholecalciferol (Vitamin D3) 25 Mcg Tablet) 125 mcg PO BID [facility] Last Admin: 07/03/24 08:47 Dose: 125 mcg Home Medications ?Medication ?Instructions ?Recorded ?Confirmed ?Type albuterol sulfate 90 mcg/actuation 2 puff inhalation Q4H PRN 07/02/24 07/02/24 History aerosol inhaler Respiratory Distress ascorbic acid (vitamin C) 500 mg 500 mg PO BID 07/02/24 07/02/24 History tablet (Vitamin C) aspirin 325 mg tablet 325 mg PO BID 07/02/24 07/02/24 History atorvastatin 40 mg tablet 40 mg PO DAILY 07/02/24 07/02/24 History calcium 600 mg (as carbonate)-vit 1 tab PO BID 07/02/24 07/02/24 History D3 20 mcg (800 unit) chewable tablet (Caltrate plus D) cholecalciferol (vitamin D3) 125 125 mcg PO BID 07/02/24 07/02/24 History mcg (5,000 unit) tablet (Vitamin D3) famotidine 20 mg tablet 20 mg PO BEDTIME PRN Dyspepsia 07/02/24 07/02/24 History ferrous sulfate 325 mg (65 mg 325 mg PO DAILY 07/02/24 07/02/24 History iron) tablet (Iron (ferrous sulfate)) isosorbide mononitrate 30 mg 30 mg PO DAILY 07/02/24 07/02/24 History tablet,extended release 24 hr ticagrelor 90 mg tablet (Brilinta) 90 mg PO BID 07/02/24 07/02/24 History tramadol 50 mg tablet 50 mg PO Q6H PRN Pain (Scale Score 07/02/24 07/02/24 History 4-6) Allergies Allergy/AdvReac Type Severity Reaction Status Date / Time No Known Allergies Allergy Verified 07/02/24 10:51 Physical Exam Vital signs: Vital Signs Temp 99.1 F 07/03/24 11:46 Pulse 99 07/03/24 11:46 Resp 20 07/03/24 11:46 BP 116/58 L 07/03/24 11:46 Pulse Ox 98 07/03/24 11:46 O2 Del Method Nasal Cannula 07/03/24 11:46 O2 Flow Rate 2 07/03/24 11:46 Intake & Output 07/02/24 07/03/24 07/03/24 18:59 06:59 18:59 Intake Total 1999 100 / 100 Balance 1999 100 / 100 Intake: Intake, Oral Amount Intake, IV Amount 1999 0.9 % Sodium Chloride 1,000 ml 1999 @ 999 mls/hr IV .Q1H1M [facility] Rx#: [id number] Other: Number of Unmeasured Voids 1 Urine Bathroom Urine Color Yellow Last Bowel Movement 06/30/24 Weight 83.461 kg Weight 83.461 kg - Constitutional Present: moderate distress - Routine HEENT Exam Head: Present: normal inspection, normocephalic Eye: Present: normal appearance - Routine Neck Exam Present: supple - Routine Respiratory Exam Present: CTAB - Routine Cardiovascular Exam Cardiovascular: Present: RRR, S1, S2 - Routine Skin Exam Present: intact Hem/Onc Consult Result - Labs CBC & Chem 7: 07/03/24 06:14 07/03/24 06:14 Labs: Short CBC 07/03/24 Range/Units 06:14 WBC 9.9 (4.8-10.8) X10*3/uL Hgb 9.6 L (14.0-18.0) g/dl Hct 28.6 L (42.0-52.0) % Plt Count 349 (160-400) X10*3/uL BMP 07/03/24 06:14 Sodium 131 L Potassium 4.5 Chloride 99 Carbon Dioxide 23 BUN 7 L Creatinine 0.69 Calcium 8.9 D Urine 07/02/24 Range/Units 14:38 Urine Color Yellow Urine Appearance Clear Urine pH 6.0 (5.0-9.0) Ur Specific [place] >= 1.030 H (1.005-1.025) Urine Protein Negative (Neg-Trace) mg/dL Urine Glucose (UA) Negative (Negative) mg/dL Assessment and Plan Patient Active problem list reviewed?: Yes (1) Metastatic lung cancer (metastasis from lung to other site) Status: Acute Assessment and plan: This is a 79-year-old gentleman, who moved here from [place] recently. He has been admitted with shortness of breath. Cat scan of the chest revealed: A large left central hilar mass concerning for neoplasm with enlarged supraclavicular and mediastinal lymph nodes concerning for angy metastasis, complete collapse of the left lung with 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. Abdominal CT showing multiple hypodense lesions of the liver and a soft tissue nodule of the left adrenal gland concerning for metastasis. Multiple hypodense lesions of the liver and a soft tissue nodule of the left adrenal gland are concerning for metastasis. He has had chest tube placed with drainage of 1.5 L of fluid. This has been sent for cytology. PLAN: If this does not provide a histological diagnosis, or if there is not enough tissue for molecular testing, will proceed with a core biopsy of the liver lesion. Meanwhile he will have a PleurX catheter placed by IR, on Thursday. Will check tumor markers including CEA level and LDH. Will continue to institute pain control as you are doing. Thank you for the consult, I will follow along with you. - Time Spent With Patient Time Spent with Patient (in minutes): 30
--- NOTE | 2024-07-03 14:45 | MHC.CM.PN ---
PATIENT RESTING AND REQUESTS THAT THIS CM DIRECT QUESTIONS TO SON & OTHER FAMILY MEMBER AT BEDSIDE. PATIENT IS POLISH SPEAKING, BUT FAMILY SPEAKS [place]. PER SON, PATIENT MOVED TO [place] FROM [place] LAST WEEK. NOW LIVING WITH DAUGHTER, SON IN LAW, AND GRANDDAUGHTER. AMBULATES W/ CANE. OTHERWISE INDEPENDENT W/ CARE. NO PCP. BROCHURE PROVIDED. NO HCP. WILL NEED TO RE-ADDRESS WHEN PATIENT ABLE TO PARTICIPATE IN COVERSATION. PER SON, PATIENT HAS [place] MEDICAID AND IS LOOKING TO APPLY FOR [facility]. REFERRAL TO FINANCIAL SERVICES SENT VIA EMAIL. DP: GOAL IS HOME W/ FAMILY SUPPORT. DAUGHTER TO TRANSPORT. CM WILL CONTINUE TO FOLLOW.
[2024-07-03] MEDS: Melatonin 3 MG TABLET 6 MG PO (19:56)
[2024-07-03] MEDS: Calcium Carbonate 750 MG TAB.CHEW PO (19:56)
[2024-07-03] MEDS: Famotidine 20 MG TABLET PO (19:56)
[2024-07-03] MEDS: Zolpidem Tartrate 5 MG TABLET PO (21:34)
[2024-07-04] MEDS: HYDROmorphone HCl 0.5 MG/0.5 ML SYRINGE IVPUSH ×6 (02:46→23:47)
[2024-07-04] MEDS: Simethicone 80 MG TAB.CHEW PO ×3 (02:56→20:03)
[2024-07-04] MEDS: Milk of Magnesia 30 ML ORAL.SUSP PO (02:56)
[2024-07-04 03:45] VITALS: BP 117/61; PULSE 94; RESP 16; TEMP 36.8; O2SAT 100
[2024-07-04 06:58] LABS: Anion Gap 16 (12-20); Blood Urea Nitrogen 8 mg/dL (9-16); Calcium 9.1 mg/dL (8.4-10.2); Carbon Dioxide 24 mmol/L (22-29); Chloride 95 mmol/L (96-108); Creatinine Clr Calc Pharmacy 92.1; Estimated Glomerular Filt Rate > 60; Glucose Random 89 mg/dL (60-115); Lactate Dehydrogenase 355 U/L (118-273); Potassium 4.4 mmol/L (3.3-5.1); Sodium 131 mmol/L (135-145)
[2024-07-04 07:04] LABS: Hematocrit 29.4 % (42.0-52.0); Hemoglobin 10.3 g/dl (14.0-18.0); Mean Corpuscular Hemoglobin 32.6 pg (27.0-33.0); Mean Platelet Volume 7.9 fL (9.4-12.4); Platelet Count 377 X10*3/uL (160-400); Red Blood Count 3.16 X10*6/uL (4.60-5.80); Red Cell Distribution Width 12.8 % (11.0-16.0); White Blood Count 11.5 X10*3/uL (4.8-10.8)
[2024-07-04 07:16] VITALS: BP 105/60; PULSE 100; RESP 18; TEMP 36.2; O2SAT 97
[2024-07-04] MEDS: Atorvastatin Calcium 40 MG TABLET PO (07:48)
[2024-07-04] MEDS: Isosorbide Mononitrate 30 MG TAB.ER.24H PO (07:48)
[2024-07-04] MEDS: Ferrous Sulfate 324 MG TABLET.DR PO (07:48)
[2024-07-04] MEDS: Ascorbic Acid 500 MG TABLET PO ×2 (07:48→20:03)
[2024-07-04] MEDS: 0.9 % Sodium Chloride Flush 3 ML SYRINGE IVFLUSH ×3 (07:48→20:04)
[2024-07-04] MEDS: Calcium + Vitamin D 250 MG TABLET 500 MG PO ×2 (07:48→20:03)
[2024-07-04] MEDS: oxyCODONE HCl Immed Release 5 MG TABLET PO ×2 (07:48→15:15)
[2024-07-04] MEDS: Cholecalciferol (Vitamin D3) 25 MCG TABLET 125 MCG PO ×2 (07:48→20:03)
--- NOTE | 2024-07-04 08:58 | P.PNIM_ITS ---
Subjective Subjective Date of Service: 07/04/24 Review of Systems Follow up Pleural effusion, likely malignant pain to left drain cath site Physical Exam 2 Vital Signs: Vital Signs: Last Vital Signs Temp 97.1 F 07/04/24 07:16 Pulse 100 07/04/24 07:16 Resp 18 07/04/24 07:16 BP 105/60 07/04/24 07:16 Pulse Ox 97 07/04/24 07:16 O2 Del Method Nasal Cannula 07/04/24 07:16 O2 Flow Rate 3 07/04/24 07:16 BMI result Body Mass Index 27.2 Appearing in no acute distress lung sounds Left dim, drainage cath in place heart regular rate rhythm, clear S1, S2 positive bowel sounds, abdomen is soft, nontender neuro patient is alert x3, no focal deficits Objective Data Active Medications Acetaminophen (Acetaminophen 325 Mg Tablet) 650 mg PO Q6H PRN PRN Reason: Pain, Mild 1-3,fever,headache Albuterol Sulfate (Albuterol Sulfate 90 Mcg 8 Gm Inhaler) 2 puff INHALE RQ4H PRN PRN Reason: Respiratory Distress Ascorbic Acid (Ascorbic Acid 500 Mg Tablet) 500 mg PO BID [facility] Last Admin: 07/04/24 07:48 Dose: 500 mg Documented By: RANJEET Atorvastatin Calcium (Atorvastatin Calcium 40 Mg Tablet) 40 mg PO DAILY [facility] Last Admin: 07/04/24 07:48 Dose: 40 mg Documented By: RANJEET Calcium Carbonate (Calcium Carbonate 750 Mg Tab.Chew) 750 mg PO Q4H PRN PRN Reason: Heartburn Last Admin: 07/03/24 19:56 Dose: 750 mg Documented By: ELAINE Calcium Carbonate/Cholecalciferol (Calcium + Vitamin D 250 Mg Tablet) 500 mg PO BID [facility] Last Admin: 07/04/24 07:48 Dose: 500 mg Documented By: RANJEET Famotidine (Famotidine 20 Mg Tablet) 20 mg PO BEDTIME PRN PRN Reason: Dyspepsia Last Admin: 07/03/24 19:56 Dose: 20 mg Documented By: ELAINE Ferrous Sulfate (Ferrous Sulfate 324 Mg Tablet.) 324 mg PO DAILY [facility] Last Admin: 07/04/24 07:48 Dose: 324 mg Documented By: RANJEET Hydromorphone HCl (Hydromorphone Hcl 0.5 Mg/0.5 Ml Syringe) 0.5 mg IVPUSH Q3H PRN; Protocol PRN Reason: Pain, Severe (Pain Scale 7-10) Last Admin: 07/04/24 06:37 Dose: 0.5 mg Documented By: ELAINE Isosorbide Mononitrate (Isosorbide Mononitrate 30 Mg Tab.Er.24h) 30 mg PO DAILY [facility]; Protocol Last Admin: 07/04/24 07:48 Dose: 30 mg Documented By: RANJEET Magnesium Hydroxide (Milk Of Magnesia 30 Ml Oral.Susp) 30 ml PO DAILY PRN PRN Reason: Constipation Last Admin: 07/04/24 02:56 Dose: 30 ml Documented By: ELAINE Melatonin (Melatonin 3 Mg Tablet) 6 mg PO BEDTIME PRN PRN Reason: Insomnia Last Admin: 07/03/24 19:56 Dose: 6 mg Documented By: ELAINE Oxycodone HCl (Oxycodone Hcl Immed Release 5 Mg Tablet) 5 mg PO Q4H PRN PRN Reason: Pain, Moderate(Pain Scale 4-6) Last Admin: 07/04/24 07:48 Dose: 5 mg Documented By: RANJEET Simethicone (Simethicone 80 Mg Tab.Chew) 80 mg PO QIDWMHS PRN PRN Reason: Gas Last Admin: 07/04/24 07:48 Dose: 80 mg Documented By: RANJEET Sodium Chloride (0.9 % Sodium Chloride Flush 3 Ml Syringe) 3 ml IVFLUSH [facility] Last Admin: 07/04/24 07:48 Dose: 3 ml Documented By: RANJEET Tramadol HCl (Tramadol Hcl 50 Mg Tablet) 50 mg PO Q6H PRN PRN Reason: Pain (Scale Score 4-6) Last Admin: 07/03/24 12:09 Dose: 50 mg Documented By: RANJEET Vitamin D (Cholecalciferol (Vitamin D3) 25 Mcg Tablet) 125 mcg PO BID [facility] Last Admin: 07/04/24 07:48 Dose: 125 mcg Documented By: RANJEET Zolpidem Tartrate (Zolpidem Tartrate 5 Mg Tablet) 5 mg PO BEDTIME PRN PRN Reason: Insomnia Last Admin: 07/03/24 21:34 Dose: 5 mg Documented By: ELAINE Labs 07/04/24 05:27 07/04/24 05:27 Labs: Laboratory Results - last 24 hr 07/04/24 05:27 MCV 93.0 MCH 32.6 MCHC 35.0 RDW 12.8 Plt Count 377 MPV 7.9 L Absolute Nucleated RBC 0.000 Nucleated RBC % (auto) 0.0 Anion Gap 16 Estim Creat Clear Calc 92.1 Estimated GFR > 60 Random Glucose 89 Calcium 9.1 Lactate Dehydrogenase 355 H Carcinoembryonic Ag 3.30 Microbiology Microbiology Results: Microbiology 07/02/24 16:30 Gram Stain - Final Thoracentesis Fluid Assessment and Plan (1) History of metastatic neoplastic disease: Status: Acute Plan 79 year old man admitted with significant weight loss over the last month in [place] with recent diagnosis of lung, liver mass, but no complete work up as of yet Pleural effusion likely malignant Chest CT showing large left central hilar mass, enlarged supra clavicular and mediastinal lymph nodes, complete collapse of the left lung, 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 Abdominal CT showing multiple hypodense lesions of the liver and a soft tissue nodule of the left adrenal gland concerning for metastasis drain to left lung placed in ED>1.5L drained Pulm consult>drain 0.5 L per day, Pleurx tomorrow with IR oncology consult>May need liver biopsy, check tumor markers CEA and LDH oxygen to keep o2 sats>90% Hypertension stable BP Normocytic anemia no acute blood loss follow CBC GERD PPI CAD hx of stent on brilinta and asa, hold both for now DVT prophylaxis with Lovenox Full code Quality Stroke Does the patient have a stroke diagnosis?: No VTE Prior VTE?: No VTE Risk Level:: Medical - moderate - high VTE Device Contraindication: N/A - Device Ordered VTE Drug Contraindication: Treatment Not Indicated
[2024-07-04] MEDS: Enoxaparin Sodium 40 MG/0.4 ML SYRINGE SUBCUT (10:29)
[2024-07-04 11:10] VITALS: BP 131/67; PULSE 99; RESP 18; TEMP 36.8; O2SAT 98
--- NOTE | 2024-07-04 12:57 | P.PNPL_ITS ---
Subjective Subjective Date of Service: 07/04/24 Interval history: Seen and examined. I did sit down with the pt's 2 children and reviewed all the results. They understand the gravity of the situation. I did personally reviewed the CT chest and ABD. Appears to have bulky mediastinal LN with necrosis along with a very large mediastinal mass causing extrinsic obstruction of the esophagus and the LMS bronchus. He is s/p thoracentesis but not much better due to the airway obstruction. 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 Will undergo Liver lesion biopsy tomorrow. Objective Data Labs 07/04/24 05:27 07/04/24 05:27 Labs: Laboratory Results - last 24 hr 07/04/24 05:27 WBC 11.5 H RBC 3.16 L Hgb 10.3 L Hct 29.4 L MCV 93.0 MCH 32.6 MCHC 35.0 RDW 12.8 Plt Count 377 MPV 7.9 L Absolute Nucleated RBC 0.000 Nucleated RBC % (auto) 0.0 Sodium 131 L Potassium 4.4 Chloride 95 L Carbon Dioxide 24 Anion Gap 16 BUN 8 L Creatinine 0.65 Estim Creat Clear Calc 92.1 Estimated GFR > 60 Random Glucose 89 Calcium 9.1 Lactate Dehydrogenase 355 H Carcinoembryonic Ag 3.30 Microbiology Microbiology Results: Microbiology 07/02/24 16:30 Thoracentesis Fluid Gram Stain - Final 07/02/24 16:30 Thoracentesis Fluid Anaerobic Culture - Preliminary Culture in progress. 07/02/24 16:30 Thoracentesis Fluid Body Fluid Culture - Preliminary Culture in progress. Review of Systems Constitutional: Denies daytime sleepiness, Denies excessive sweating, Denies fatigue, Denies fever(s), Denies lethargy, Denies malaise, Denies night sweats, Denies snoring and Reports weight loss Eyes: Denies blurry vision and Denies itchy eyes Denies nasal congestion, Denies post nasal drip, Denies sinus pain, Denies sinus pressure and Denies other ( Thrush) Cardiovascular: Denies chest pain, Denies pedal edema, Denies dyspnea, Reports dyspnea on exertion, Denies orthopnea and Denies paroxysmal nocturnal dyspnea Respiratory: Denies cough, Denies hemoptysis, Denies excessive phlegm production, Denies dyspnea, Reports dyspnea on exertion, Denies snoring and Denies wheezing Gastrointestinal: Denies abdominal pain and Denies heartburn Musculoskeletal: Denies myalgias, Denies arthralgias and Denies joint swelling Skin/Breast: Denies rash Denies memory loss and Denies seizure-like activity Psychiatric: Denies abnormal sleep pattern, Denies anxiety and Denies memory loss Endocrine: Denies excessive sweating, Denies fatigue and Denies heat intolerance Hematologic/Lymphatic: Denies easy bruising Allergic/Immunologic: Denies itchy eyes, Denies seasonal rhinorrhea and Denies wheezing Physical Exam 2 Vital Signs: Vital Signs: Last Vital Signs Temp 98.2 F 07/04/24 11:10 Pulse 99 07/04/24 11:10 Resp 18 07/04/24 11:10 BP 131/67 07/04/24 11:10 Pulse Ox 98 07/04/24 11:10 O2 Del Method Nasal Cannula 07/04/24 11:10 O2 Flow Rate 3 07/04/24 11:10 BMI result Body Mass Index 27.2 Appearing in no acute distress lung sounds Left dim, drainage cath in place heart regular rate rhythm, clear S1, S2 positive bowel sounds, abdomen is soft, nontender neuro patient is alert x3, no focal deficits Procedures Date of Service Date of Service: 07/04/24 Assessment and Plan Assessment and plan (1) Metastatic lung cancer (metastasis from lung to other site): Status: Acute (2) Dysphagia: Status: Acute (3) Hypoxia: Status: Acute (4) Pleural effusion, left: Status: Acute (5) Lung mass: Status: Acute (6) Bronchial obstruction: Status: Acute Plan Awaiting liver lesion Bx, could also consider EBUS if it is not feasible barium swallow and speech eval nutritional status Once a dx is made will need therapy for dealing with the LMS bronchus obstruction. Chemo +/- radiation. Could also consider interventional pulmonary eval. Goals of care, frail state Time Spent With Patient Time: Total time managing care of this patient today ____ minutes. Progress Note: Quality Stroke Does the patient have a stroke diagnosis?: No
[2024-07-04 15:05] VITALS: BP 136/60; PULSE 105; RESP 17; TEMP 36.4; O2SAT 99
[2024-07-04 16:31] VITALS: BMI 27.2
--- NOTE | 2024-07-04 16:59 | MHC.CLN ---
NUTRITION LIBERALIZED DIET FROM 2 GRAM SODIUM TO REGULAR TO PROMOTE PO INTAKE. ADDING ENSURE TID TO INCREASE NUTRITION. SUPPLEMENT PROVIDES 1050 KCALS, 60 G PROTEIN. QUALIFIES MODERATELY MALNOURISHED IN THE CONTEXT OF CHRONIC ILLNESS BASED ON SIGNIFICANT WEIGHT LOSS AND VERY POOR PO INTAKE. FOLLOW FOR DIET TOLERANCE AND PO INTAKE. SEE CLINICAL NUTRITION ASSESSMENT 07/04/24.
[2024-07-04 20:00] VITALS: BP 111/59; PULSE 105; RESP 20; TEMP 36.8; O2SAT 99
[2024-07-04 23:20] VITALS: BP 136/73; PULSE 98; RESP 20; TEMP 37.2; O2SAT 98
[2024-07-05] MEDS: HYDROmorphone HCl 0.5 MG/0.5 ML SYRINGE IVPUSH ×3 (02:41→09:22)
[2024-07-05 03:54] VITALS: BP 115/60; PULSE 95; RESP 16; TEMP 37.2; O2SAT 98
[2024-07-05 07:41] VITALS: BP 117/58; PULSE 105; RESP 18; TEMP 36.3; O2SAT 97
--- NOTE | 2024-07-05 09:04 | MHC.SLORD ---
Addendum entered and electronically signed by JAMIE Jeff 07/05/24 14:07: Per conversation w/ hospitalist following barium swallow; pt to remain NPO. Pt scheduled to be NPO 07/06 for procedure as well. GASOLINE POWER SHOVEL OPERATOR consultation to be deffered. GASOLINE POWER SHOVEL OPERATOR to check in w/ MD tomorrow 07/06 regarding GASOLINE POWER SHOVEL OPERATOR needs. Original Note: Speech Language Pathology Order Status: Pt NPO for barium swallow therefore GASOLINE POWER SHOVEL OPERATOR clinical swallow evaluation on hold.
[2024-07-05 09:21] VITALS: BP 117/58
[2024-07-05] MEDS: traMADoL HCL 50 MG TABLET PO (09:21)
[2024-07-05] MEDS: Isosorbide Mononitrate 30 MG TAB.ER.24H PO (09:21)
[2024-07-05] MEDS: Cholecalciferol (Vitamin D3) 25 MCG TABLET 125 MCG PO (09:21)
[2024-07-05] MEDS: 0.9 % Sodium Chloride Flush 3 ML SYRINGE IVFLUSH ×2 (09:22→15:34)
[2024-07-05] MEDS: Ferrous Sulfate 324 MG TABLET.DR PO (09:22)
[2024-07-05] MEDS: Calcium + Vitamin D 250 MG TABLET 500 MG PO (09:22)
[2024-07-05] MEDS: Ascorbic Acid 500 MG TABLET PO (09:22)
[2024-07-05] MEDS: Atorvastatin Calcium 40 MG TABLET PO (09:22)
[2024-07-05 09:25] LABS: pH Pleural Fluid 7.53
[2024-07-05 09:26] LABS: Albumin Pleural Fluid 2.4; Glucose Pleural Fluid 89; LDH Pleural Fluid 700
[2024-07-05 09:27] LABS: Amylase Pleural Fluid 28
[2024-07-05] MEDS: Simethicone 80 MG TAB.CHEW PO (09:33)
--- NOTE | 2024-07-05 10:30 | P.PNIM_ITS ---
Subjective Subjective Date of Service: 07/05/24 Review of Systems Follow up Pleural effusion, likely malignant pain to left drain cath site Physical Exam 2 Vital Signs: Vital Signs: Last Vital Signs Temp 97.3 F 07/05/24 07:41 Pulse 105 H 07/05/24 07:41 Resp 18 07/05/24 07:41 BP 117/58 L 07/05/24 09:21 Pulse Ox 97 07/05/24 07:41 O2 Del Method Nasal Cannula 07/05/24 07:41 O2 Flow Rate 3 07/05/24 07:41 BMI result Body Mass Index 27.2 Appearing in no acute distress lung sounds are clear to auscultation heart regular rate rhythm, clear S1, S2 positive bowel sounds, abdomen is soft, nontender neuro patient is alert x3, no focal deficits lung drain to left lung Objective Data Active Medications Acetaminophen (Acetaminophen 325 Mg Tablet) 650 mg PO Q6H PRN PRN Reason: Pain, Mild 1-3,fever,headache Albuterol Sulfate (Albuterol Sulfate 90 Mcg 8 Gm Inhaler) 2 puff INHALE RQ4H PRN PRN Reason: Respiratory Distress Ascorbic Acid (Ascorbic Acid 500 Mg Tablet) 500 mg PO BID [facility] Last Admin: 07/05/24 09:22 Dose: 500 mg Documented By: RANJEET Atorvastatin Calcium (Atorvastatin Calcium 40 Mg Tablet) 40 mg PO DAILY [facility] Last Admin: 07/05/24 09:22 Dose: 40 mg Documented By: RANJEET Calcium Carbonate (Calcium Carbonate 750 Mg Tab.Chew) 750 mg PO Q4H PRN PRN Reason: Heartburn Last Admin: 07/03/24 19:56 Dose: 750 mg Documented By: ELAINE Calcium Carbonate/Cholecalciferol (Calcium + Vitamin D 250 Mg Tablet) 500 mg PO BID [facility] Last Admin: 07/05/24 09:22 Dose: 500 mg Documented By: RANJEET Enoxaparin Sodium (Enoxaparin Sodium 40 Mg/0.4 Ml Syringe) 40 mg SUBCUT Q24H [facility] Last Admin: 07/04/24 10:29 Dose: 40 mg Documented By: RANJEET Famotidine (Famotidine 20 Mg Tablet) 20 mg PO BEDTIME PRN PRN Reason: Dyspepsia Last Admin: 07/03/24 19:56 Dose: 20 mg Documented By: ELAINE Ferrous Sulfate (Ferrous Sulfate 324 Mg Tablet.) 324 mg PO DAILY [facility] Last Admin: 07/05/24 09:22 Dose: 324 mg Documented By: RANJEET Hydromorphone HCl (Hydromorphone Hcl 0.5 Mg/0.5 Ml Syringe) 0.5 mg IVPUSH Q3H PRN; Protocol PRN Reason: Pain, Severe (Pain Scale 7-10) Last Admin: 07/05/24 09:22 Dose: 0.5 mg Documented By: RANJEET Isosorbide Mononitrate (Isosorbide Mononitrate 30 Mg Tab.Er.24h) 30 mg PO DAILY [facility]; Protocol Last Admin: 07/05/24 09:21 Dose: 30 mg Documented By: RANJEET Magnesium Hydroxide (Milk Of Magnesia 30 Ml Oral.Susp) 30 ml PO DAILY PRN PRN Reason: Constipation Last Admin: 07/04/24 02:56 Dose: 30 ml Documented By: ELAINE Melatonin (Melatonin 3 Mg Tablet) 6 mg PO BEDTIME PRN PRN Reason: Insomnia Last Admin: 07/03/24 19:56 Dose: 6 mg Documented By: ELAINE Oxycodone HCl (Oxycodone Hcl Immed Release 5 Mg Tablet) 5 mg PO Q4H PRN PRN Reason: Pain, Moderate(Pain Scale 4-6) Last Admin: 07/04/24 15:15 Dose: 5 mg Documented By: RANJEET Simethicone (Simethicone 80 Mg Tab.Chew) 80 mg PO QIDWMHS PRN PRN Reason: Gas Last Admin: 07/05/24 09:33 Dose: 80 mg Documented By: RANJEET Sodium Chloride (0.9 % Sodium Chloride Flush 3 Ml Syringe) [facility] Last Admin: 07/05/24 09:22 Dose: 3 ml Documented By: RANJEET Tramadol HCl (Tramadol Hcl 50 Mg Tablet) 50 mg PO Q6H PRN PRN Reason: Pain (Scale Score 4-6) Last Admin: 07/05/24 09:21 Dose: 50 mg Documented By: RANJEET Vitamin D (Cholecalciferol (Vitamin D3) 25 Mcg Tablet) 125 mcg PO BID [facility] Last Admin: 07/05/24 09:21 Dose: 125 mcg Documented By: RANJEET Zolpidem Tartrate (Zolpidem Tartrate 5 Mg Tablet) 5 mg PO BEDTIME PRN PRN Reason: Insomnia Last Admin: 07/03/24 21:34 Dose: 5 mg Documented By: ELAINE Labs 07/04/24 05:27 07/04/24 05:27 Labs: Laboratory Results - last 24 hr 07/02/24 16:30 Pleural pH 7.53 Pleural Total Protein 4.0 Pleural Albumin 2.4 Pleural LDH 700 Pleural Glucose 89 Pleural Amylase 28 Microbiology Microbiology Results: Microbiology 07/02/24 16:30 Gram Stain - Final Thoracentesis Fluid Anaerobic Culture - Preliminary Culture in progress. Body Fluid Culture - Preliminary Culture in progress. 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 Abdominal CT showing multiple hypodense lesions of the liver and a soft tissue nodule of the left adrenal gland concerning for metastasis drain to left lung placed in ED>1.5L drained, keep clamped Pulm consult>drain 0.5 L per day, Pleurx tomorrow with IR oncology consult>May need liver biopsy, ordered, CEA 3.30, LDH 355 oxygen to keep o2 sats>90% pain control IV and oral Dysphagia barium swallow today Hypertension stable BP Normocytic anemia no acute blood loss follow CBC GERD PPI CAD hx of stent on brilinta and asa, hold both for now DVT prophylaxis with Lovenox Full code Quality Stroke Does the patient have a stroke diagnosis?: No VTE Prior VTE?: No VTE Risk Level:: Medical - moderate - high VTE Device Contraindication: N/A - Device Ordered VTE Drug Contraindication: Treatment Not Indicated
[2024-07-05 11:08] VITALS: BP 142/67; PULSE 98; RESP 18; TEMP 36.9; O2SAT 98
[2024-07-05] MEDS: HYDROmorphone HCl 0.5 MG/0.5 ML SYRINGE 1 MG IVPUSH ×3 (11:20→18:33)
[2024-07-05 14:00] VITALS: BP 110/70; PULSE 93; RESP 16; O2SAT 99
--- NOTE | 2024-07-05 15:30 | PM.GICN ---
History of Present Illness Data of Consult Service Date: 07/05/24 Primary Care Provider: None Physician HPI Reason for consult: dysphagia 79-year-old male with hx of CAD, stroke 6 years ago on Brilinta and aspirin, hyperlipidemia, and cancer who I am seeing for assessment for dysphagia. Patient has lost about 50# over few months with difficulty swallowing solids but not liquid.s Patient had w/u in [place] and was diagnosed as having lung, kidney and esophgeal masses. Patient denied chest pain, sob, fever chills, nausea, vomiting, diarrhea. He reports constant pain over his left flank which is worse with breathing.\ He had a drain placed into his left kidney. Imaging here with large left sided hilar mass with enlarged LN and lesions in liver converning for liver mets. ba swallow showed retained food in the esophagus. Review of Systems Review of Systems: Constitutional : + Weight loss, No Fever, No Chills ENT/Mouth : No sore throat, No Rhinorrhea Eyes: No Swelling, No Redness Cardiovascular : No Chest Pain, No SOB, No Edema Respiratory : No Cough, No Sputum, No Wheezing Gastrointestinal : see HPI Genitourinary : NO Dysuria, No Urinary Frequency, No Hematuria, No Urgency Musculoskeletal : no joint pain, No Myalgias, No Joint Swelling Skin : No Skin Lesions, No rash Neuro : + Weakness, No Numbness, No Dizziness, No Headache Psych : No Anxiety/Panic, No Depression Heme/Lymph: No Bruising, No Lymphadenopathy Endocrine : No Polyuria, No Polydipsia All other systems reviewed and are negative. [facility] Past Medical History Medical History (Updated 07/04/24 @ 13:03 by Duarte Stauffer MD) Lung mass Family History Pertinent family history: no FH of lung cancer Social History Social History Household Members: Children Housing: Apartment Do you presently have visiting nurse or other home services: No Unable to assess alcohol history related to: Unknown Patient Tobacco Use Status: Former Tobacco user Second Hand Smoke Exposure: No service: No Meds Allergies Allergy/AdvReac Type Severity Reaction Status Date / Time No Known Allergies Allergy Verified 07/02/24 10:51 Active Medications: Current Medications Acetaminophen (Acetaminophen 325 Mg Tablet) 650 mg PO Q6H PRN PRN Reason: Pain, Mild 1-3,fever,headache Albuterol Sulfate (Albuterol Sulfate 90 Mcg 8 Gm Inhaler) 2 puff INHALE RQ4H PRN PRN Reason: Respiratory Distress Ascorbic Acid (Ascorbic Acid 500 Mg Tablet) 500 mg PO BID [facility] Last Admin: 07/05/24 09:22 Dose: 500 mg Atorvastatin Calcium (Atorvastatin Calcium 40 Mg Tablet) 40 mg PO DAILY [facility] Last Admin: 07/05/24 09:22 Dose: 40 mg Calcium Carbonate (Calcium Carbonate 750 Mg Tab.Chew) 750 mg PO Q4H PRN PRN Reason: Heartburn Last Admin: 07/03/24 19:56 Dose: 750 mg Calcium Carbonate/Cholecalciferol (Calcium + Vitamin D 250 Mg Tablet) 500 mg PO BID [facility] Last Admin: 07/05/24 09:22 Dose: 500 mg Enoxaparin Sodium (Enoxaparin Sodium 40 Mg/0.4 Ml Syringe) 40 mg SUBCUT Q24H [facility] Last Admin: 07/04/24 10:29 Dose: 40 mg Famotidine (Famotidine 20 Mg Tablet) 20 mg PO BEDTIME PRN PRN Reason: Dyspepsia Last Admin: 07/03/24 19:56 Dose: 20 mg Ferrous Sulfate (Ferrous Sulfate 324 Mg Tablet.Dr) 324 mg PO DAILY [facility] Last Admin: 07/05/24 09:22 Dose: 324 mg Hydromorphone HCl (Hydromorphone Hcl 0.5 Mg/0.5 Ml Syringe) 1 mg IVPUSH Q3H PRN; Protocol PRN Reason: Pain, Severe (Pain Scale 7-10) Last Admin: 07/05/24 11:20 Dose: 1 mg Isosorbide Mononitrate (Isosorbide Mononitrate 30 Mg Tab.Er.24h) 30 mg PO DAILY [facility]; Protocol Last Admin: 07/05/24 09:21 Dose: 30 mg Magnesium Hydroxide (Milk Of Magnesia 30 Ml Oral.Susp) 30 ml PO DAILY PRN PRN Reason: Constipation Last Admin: 07/04/24 02:56 Dose: 30 ml Melatonin (Melatonin 3 Mg Tablet) 6 mg PO BEDTIME PRN PRN Reason: Insomnia Last Admin: 07/03/24 19:56 Dose: 6 mg Oxycodone HCl (Oxycodone Hcl Immed Release 5 Mg Tablet) 10 mg PO Q4H PRN PRN Reason: Pain, Moderate(Pain Scale 4-6) Simethicone (Simethicone 80 Mg Tab.Chew) 80 mg PO QIDWMHS PRN PRN Reason: Gas Last Admin: 07/05/24 09:33 Dose: 80 mg Sodium Chloride (0.9 % Sodium Chloride Flush 3 Ml Syringe) 3 ml IVFLUSH [facility] Last Admin: 07/05/24 09:22 Dose: 3 ml Tramadol HCl (Tramadol Hcl 50 Mg Tablet) 50 mg PO Q6H PRN PRN Reason: Pain (Scale Score 4-6) Last Admin: 07/05/24 09:21 Dose: 50 mg Vitamin D (Cholecalciferol (Vitamin D3) 25 Mcg Tablet) 125 mcg PO BID [facility] Last Admin: 07/05/24 09:21 Dose: 125 mcg Zolpidem Tartrate (Zolpidem Tartrate 5 Mg Tablet) 5 mg PO BEDTIME PRN PRN Reason: Insomnia Last Admin: 07/03/24 21:34 Dose: 5 mg Home Medications ?Medication ?Instructions ?Recorded ?Confirmed ?Last Taken ?Type albuterol sulfate 90 mcg/actuation 2 puff inhalation Q4H PRN 07/02/24 07/02/24 Unknown History aerosol inhaler Respiratory Distress ascorbic acid (vitamin C) 500 mg 500 mg PO BID 07/02/24 07/02/24 07/02/24 History tablet (Vitamin C) aspirin 325 mg tablet 325 mg PO BID 07/02/24 07/02/24 07/02/24 History atorvastatin 40 mg tablet 40 mg PO DAILY 07/02/24 07/02/24 07/02/24 History calcium 600 mg (as carbonate)-vit 1 tab PO BID 07/02/24 07/02/24 07/02/24 History D3 20 mcg (800 unit) chewable tablet (Caltrate plus D) cholecalciferol (vitamin D3) 125 125 mcg PO BID 07/02/24 07/02/24 07/02/24 History mcg (5,000 unit) tablet (Vitamin D3) famotidine 20 mg tablet 20 mg PO BEDTIME PRN Dyspepsia 07/02/24 07/02/24 Unknown History ferrous sulfate 325 mg (65 mg 325 mg PO DAILY 07/02/24 07/02/24 07/02/24 History iron) tablet (Iron (ferrous sulfate)) isosorbide mononitrate 30 mg 30 mg PO DAILY 07/02/24 07/02/24 07/02/24 History tablet,extended release 24 hr ticagrelor 90 mg tablet (Brilinta) 90 mg PO BID 07/02/24 07/02/24 07/02/24 History tramadol 50 mg tablet 50 mg PO Q6H PRN Pain (Scale Score 07/02/24 07/02/24 Unknown History 4-6) Physical Exam Vital Signs: Vital Signs: Last Vital Signs Temp 98.5 F 07/05/24 11:08 Pulse 93 07/05/24 14:00 Resp 16 07/05/24 14:00 BP 110/70 07/05/24 14:00 Pulse Ox 99 07/05/24 14:00 O2 Del Method Nasal Cannula 07/05/24 14:00 O2 Flow Rate 4 07/05/24 14:00 BMI result Body Mass Index 27.2 EXAM: GENERAL: The patient is gaunt, stridor VITAL SIGNS:see workflow HEENT: Nonicteric sclerae, PERRLA, EOMI. Oropharynx clear. Moist mucous membranes. Conjunctivae appear well perfused. No thyroid mass. CHEST: Chest wall is nontender. HEART: Regular rate and rhythm without murmurs. LUNGS: bronachial breathing left lung ABDOMEN: Soft, positive bowel sounds, nontender, no organomegaly.no flank tenderness but drainage tube noted SKIN: No rash, no excessive bruising, petechiae, or purpura. NEUROLOGIC: Cranial nerves II-XII intact without motor/sensory deficit. Psych: normal affect Results Labs 07/04/24 05:27 07/04/24 05:27 Microbiology Microbiology Results: Microbiology 07/02/24 16:30 Thoracentesis Fluid Gram Stain - Final 07/02/24 16:30 Thoracentesis Fluid Anaerobic Culture - Preliminary Culture in progress. 07/02/24 16:30 Thoracentesis Fluid Body Fluid Culture - Preliminary Culture in progress. Imaging CT scan - chest: Attestation: I personally reviewed and interpreted this imaging study as follows: (hilar mass, pleural effusion, collapsed lung ) Assessment and Plan (1) Dysphagia: Qualifiers: Dysphagia type: unspecified Qualified Code(s): R13.10 - Dysphagia, unspecified Status: Acute Plan 1/ Dysphagia, likely mechanical effect from hilar mass and compression. Patient has large mass close to the left hilum with stridorous breathing. ba swallow with food retained in esophagus ddx: paraneoplastix achalasia PLAN 1. strict NPO 2. transfer to tertiary center, would be very high risk for anesthesia and EGD here 3/ may need TPN meantime Procedures Date of Service Date of Service: 07/05/24
--- NOTE | 2024-07-05 15:34 | MHC.CM.PN ---
EMR reviewed and per MD rounds, pt is not medically cleared for discharge due to management of pleural effusion, likely malignant with swallow eval today, pleurx cath placement tomorrow, and liver biopsy also pending.
[2024-07-05 15:46] VITALS: BP 114/58; PULSE 96; RESP 18; TEMP 36.9; O2SAT 98
--- NOTE | 2024-07-05 16:24 | P.DS_ITS ---
DS: Providers Provider Date of Service: 07/05/24 Date of admission: 07/02/24 15:30 Date of discharge: 07/05/24 Primary care physician: None Physician Consults: 07/02/24 16:26 Consult to Pulmonology Routine Consulting Provider: [facility] Reason for consultation: malignant effusion 07/02/24 17:32 Consult to Hematology / Oncology Routine Consulting Provider: [facility] Oncology/Hematology Reason for consultation: Malignant effusion 07/05/24 12:42 Consult to Gastroenterology Routine Consulting Provider: Purvi Mcadams Reason for consultation: Food bolus DS: Diagnosis Discharge Diagnosis (1) Dysphagia: Status: Acute DS: Summary Hospital Course Hospital Course: 79-year-old male with past medical history of CAD, stroke 6 years ago on Brilinta and aspirin, hyperlipidemia and previous long history of tobacco use many years ago presents to the ED with his daughterdue to concern for 50 lb weight loss over the past month. His daughter went to get him in [place] as he has been feeling more ill. In [place] and had a workup showing concerning findings for lung mass, kidney mass and esophageal mass. The workup was completed a couple of weeks ago. The patient has had some difficulty swallowing and has not had solid foods in the last couple of weeks. He has been consuming chicken broth, ensure and water for nutrition. Patient denied chest pain, sob, fever chills, nausea, vomiting, diarrhea. He reports constant pain over his left flank. In the ED, Review of CT images performed in [place] show renal cysts, diverticulosis, evidence of diverticulitis, a nodular prostate, nodes in the paratracheal region, stranding posteriorly along the distal esophagus and mainstem bronchus encasing hilar structures, as well as punctate pulmonary nodul es in the right upper lobe and mild emphysema. 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 Abdominal CT showing multiple hypodense lesions of the liver and a soft tissue nodule of the left adrenal gland concerning for metastasis. Pleural effusion likely malignant . 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 It also appears that this mass is compressing the left mainstem bronchus, there is possibility this patient may need radiation. Abdominal CT showing multiple hypodense lesions of the liver and a soft tissue nodule of the left adrenal gland concerning for metastasis. drain to left lung placed in ED>1.5L drained, keep clamped plan is for PleurX catheter. oncology consult>needs liver biopsy for diagnostic purposes. CEA 3.30, LDH 355. oxygen to keep o2 sats>90% on 3-4 L via nasal cannula. Having pain to left lung catheter site and has been treated with IV Dilaudid and oxycodone. Dysphagia. barium swallow today> large food bolus in the mid esophagus unable to be removed. Keep patient NPO, discussed with Gastroenterology, patient will likely need esophageal stent. He may also require other forms of nutrition, TPN versus PEG tube. Hypertension . stable BP Normocytic anemia. no acute blood loss. follow CBC GERD. PPI CAD. hx of stent on brilinta and asa, hold both for now Time Attestation Discharge Coordination Time (in mins): 45 Quality: Safe Use of Opioids Does Pt have an Active Cancer Diagnosis on the Problem List?: No Quality: Stroke Does the patient have a stroke diagnosis?: No Physical Exam Vital Signs: Vital Signs: Last Vital Signs Temp 98.5 F 07/05/24 15:46 Pulse 96 07/05/24 15:46 Resp 18 07/05/24 15:46 BP 114/58 L 07/05/24 15:46 Pulse Ox 98 07/05/24 15:46 O2 Del Method Nasal Cannula 07/05/24 15:46 O2 Flow Rate 3 07/05/24 15:46 BMI result Body Mass Index 27.2 Appearing in no acute distress head is normocephalic atraumatic eyes pupils are PERRLA sclera is anicteric mouth throat mucous membranes are intact and moist neck is supple no lymphadenopathy, no JVD noted lung rhonchi, left lung drain heart regular rate rhythm, clear S1, S2 positive bowel sounds, abdomen is soft, nontender neuro patient is alert x3, no focal deficits DS: Data Data Completed and Pending Pending studies at discharge: Pending at discharge 07/02/24 16:39 Cytology [PTH] Stat Labs on day of discharge: Laboratory Results - last 24 hr 07/02/24 16:30 Pleural pH 7.53 Pleural Total Protein 4.0 Pleural Albumin 2.4 Pleural LDH 700 Pleural Glucose 89 Pleural Amylase 28 Preliminary micro results at discharge 07/02/24 16:30 Anaerobic Culture - Preliminary Thoracentesis Fluid Culture in progress. Body Fluid Culture - Preliminary Culture in progress. Discharge Plan Discharge Anticipated Discharge Date/Time: 07/05/24 16:17 Patient Disposition: [facility] Discharge Diagnosis: Lung mass with liver metastasis Esophageal food bolus Discharge Medications: New zolpidem 5 mg Tablet 5 mg PO BEDTIME PRN (Reason: Insomnia) Qty: 30 0RF oxycodone 5 mg Tablet 10 mg PO Q4H PRN (Reason: Pain, Moderate(Pain Scale 4-6)) Qty: 30 0RF Rx Instructions: Partial Fill upon patient request. enoxaparin 40 mg/0.4 mL Syringe 40 mg subcut Q24H Qty: 4 0RF hydromorphone 0.5 mg/0.5 mL Syringe 1 mg IVPUSH Q3H PRN (Reason: Pain, Severe (Pain Scale 7-10)) Qty: 5 0RF Protocol: Hold for RR < HOLD and contact provider for RR < (bpm): 12 Rx Instructions: Partial Fill upon patient request. Continued cholecalciferol (vitamin D3) [Vitamin D3] 125 mcg (5,000 unit) Tablet 125 mcg PO BID ascorbic acid (vitamin C) [Vitamin C] 500 mg Tablet 500 mg PO BID ferrous sulfate [Iron (ferrous sulfate)] 325 mg (65 mg iron) Tablet 325 mg PO DAILY aspirin 325 mg Tablet 325 mg PO BID albuterol sulfate 90 mcg/actuation Hfa Aerosol Inhaler 2 puff INHALATION Q4H PRN (Reason: Respiratory Distress) atorvastatin 40 mg Tablet 40 mg PO DAILY tramadol 50 mg Tablet 50 mg PO Q6H PRN (Reason: Pain (Scale Score 4-6)) famotidine 20 mg Tablet 20 mg PO BEDTIME PRN (Reason: Dyspepsia) isosorbide mononitrate 30 mg Tablet Extended Release 24 Hr 30 mg PO DAILY Brilinta 90 mg Tablet 90 mg PO BID Caltrate 600 plus D 600 mg-20 mcg (800 unit) Tablet,Chewable 1 tab PO BID Discharge Orders: Discharge Order (Routine); Ordered 07/05/24 Ordered By: Salena Stauffer Diet: NPO Activity on Discharge: As tolerated Stand Alone Forms: Patient Portal Discharge page Print Language: [place] Care Plan Goals: Left lung drain, clamped Health Concerns: Lung mass with liver metastasis Esophageal food bolus Plan of Treatment: Transfer to [facility] for higher level of care Assessment: See discharge summary
== END 2024-07-05 19:20 | disposition short-term general hospital (02) | DRG 181 ==
LOC: HO.ED 17:11 → HO.EDOVER 17:26 → HO.IMC 07-03 08:13
PROVIDERS: Admitting Provider Internal Medicine; Emergency Provider Emergency Medicine; Visit Provider Nurse Practitioner Acute Care
DX: C34.02 Malignant neoplasm of left main bronchus (principal); C77.8 Secondary and unspecified malignant neoplasm of lymph nodes of multiple regions; C78.7 Secondary malignant neoplasm of liver and intrahepatic bile duct; J91.0 Malignant pleural effusion; C79.72 Secondary malignant neoplasm of left adrenal gland; J98.19 Other pulmonary collapse; K22.2 Esophageal obstruction; K21.9 Gastro-esophageal reflux disease without esophagitis; K22.0 Achalasia of cardia; E78.5 Hyperlipidemia, unspecified; I25.10 Atherosclerotic heart disease of native coronary artery without angina pectoris; I10 Essential (primary) hypertension; D63.0 Anemia in neoplastic disease; Z20.822 Contact with and (suspected) exposure to COVID-19; Z87.891 Personal history of nicotine dependence; Z86.73 Personal history of transient ischemic attack (TIA), and cerebral infarction without residual deficits; Z79.82 Long term (current) use of aspirin; Z79.899 Other long term (current) drug therapy
CPT/HCPCS: 0241U; 36415; 70460; 71045; 71260; 74177; 74220; 76705; 80048; 80053; 81003; 82042; 82150; 82378; 82945; 83615; 83690; 83735; 83986; 84100; 84157; 84484; 84550; 85025; 85027; 85610; 87070; 87073; 87205; 88112; 88305; 89051; 99285; J1171; J1650; J2003; J2270; J2405; Q9967

== ENCOUNTER → 2024-07-02 11:30 | Outpatient (BNV) | payer OTHER, SELFPAY | PROVIDERS: Emergency Provider Emergency Medicine; Visit Provider Nuclear Medicine | DX: R93.2 Abnormal findings on diagnostic imaging of liver and biliary tract (principal); R59.0 Localized enlarged lymph nodes; I63.81 Other cerebral infarction due to occlusion or stenosis of small artery; J98.19 Other pulmonary collapse | CPT/HCPCS: 70460; 71045; 71260; 74177 ==

== ENCOUNTER 2024-07-02 15:30 | Outpatient (BNV) | payer OTHER, SELFPAY | END 2024-07-05 11:30 | PROVIDERS: Admitting Provider Internal Medicine; Emergency Provider Emergency Medicine; Visit Provider Radiology Diagnostic Radiology | DX: K76.9 Liver disease, unspecified (principal) | CPT/HCPCS: 76705 ==

== ENCOUNTER 2024-07-02 15:30 | Outpatient (BNV) | payer OTHER, SELFPAY | END 2024-07-04 08:12 | PROVIDERS: Admitting Provider Internal Medicine; Emergency Provider Emergency Medicine; Visit Provider Radiology Diagnostic Radiology | DX: J98.19 Other pulmonary collapse (principal); J90 Pleural effusion, not elsewhere classified | CPT/HCPCS: 71045 ==

== ENCOUNTER → 2024-07-02 15:30 | Outpatient (BNV) | payer OTHER, SELFPAY | PROVIDERS: Admitting Provider Internal Medicine; Emergency Provider Emergency Medicine; Visit Provider Internal Medicine Gastroenterology | DX: R13.10 Dysphagia, unspecified (principal) | CPT/HCPCS: 99233 ==

== ENCOUNTER → 2024-07-02 15:30 | Outpatient (BNV) | payer OTHER, SELFPAY | PROVIDERS: Admitting Provider Internal Medicine; Emergency Provider Emergency Medicine; Visit Provider Nurse Practitioner Acute Care | DX: R13.10 Dysphagia, unspecified (principal) | CPT/HCPCS: 99223; 99232; 99239 ==

== ENCOUNTER → 2024-07-02 15:30 | Outpatient (BNV) | payer OTHER, SELFPAY | PROVIDERS: Admitting Provider Internal Medicine; Emergency Provider Emergency Medicine; Visit Provider Internal Medicine Medical Oncology | DX: C34.92 Malignant neoplasm of unspecified part of left bronchus or lung (principal) | CPT/HCPCS: 99222 ==

== ENCOUNTER → 2024-07-02 15:30 | Outpatient (BNV) | payer OTHER, SELFPAY | PROVIDERS: Admitting Provider Internal Medicine; Emergency Provider Emergency Medicine; Visit Provider Internal Medicine Pulmonary Disease | DX: J90 Pleural effusion, not elsewhere classified (principal) | CPT/HCPCS: 99222 ==